=== PATIENT | female | born 1935 | race African-American/Black ===

== ENCOUNTER 2018-07-21 14:05 | Inpatient (IN) | payer OTHER ==
--- NOTE | 2018-07-21 14:24 | PDOC ---
History of Present Illness - General Chief Complaint: Altered Mental Status Stated Complaint: AMS Time Seen by Provider: 07/21/18 14:21 - History of Present Illness Initial Comments: 07/21/18 14:57 The patient is an 82 year old female with a history of HTN, HLD, Hypothyroid, Dementia, Schizophrenia who presents from her NH for evaluation of AMS. Per the patient's NH, she was on the toilet when she became unresponsive for approximately 3 minutes before returning to baseline. She was noted to be hypotensive with systolics in the 90s prompting her presentation to the ED for further evaluation. They note that the patient has been undergoing a steady decline over the past few weeks with poor PO intake. The patient is non- interactive at baseline due to her advance dementia. ROS is unobtainable due to the patient's dementia. Past History - Past Medical History Allergies/Adverse Reactions: Allergies Allergy/AdvReac Type Severity Reaction Status Date / Time No Known Allergies Allergy Verified 07/21/18 14:44 Home Medications: Ambulatory Orders Acetaminophen [Tylenol -] 650 mg PO BID 07/21/18 Amlodipine Besylate 5 mg PO DAILY 07/21/18 Aspirin [ASA -] 81 mg PO DAILY 07/21/18 Cholecalciferol (Vitamin D3) [Vitamin D3 -] 2,000 unit PO DAILY 07/21/18 Docusate Sodium [Colace -] 200 mg PO HS 07/21/18 Levothyroxine Sodium [Levo-T] 50 mcg PO DAILY 07/21/18 Mirtazapine [Remeron -] 15 mg PO HS 07/21/18 Multivitamins [Tab-A-Vit -] 1 tab PO DAILY 07/21/18 Polyethylene Glycol 3350 [Miralax (For Daily Use) -] 17 gm PO DAILY 07/21/18 Risperidone [Risperdal] 0.25 mg PO DAILY 07/21/18 Valsartan [Diovan] 80 mg PO DAILY 07/21/18 - Suicide/Smoking/Psychosocial Hx Smoking History: Unknown if ever smoked Review of Systems - Review of Systems Able to Perform ROS?: No (Dementia/AMS) *Physical Exam - Vital Signs Last Vital Signs Temp Pulse Resp BP Pulse Ox 113 H 20 86/66 L 98 07/21/18 14:19 07/21/18 14:19 07/21/18 14:19 07/21/18 14:19 - Physical Exam Comments: 07/21/18 15:01 General Appearance: Nourished. No Apparent Distress HEENT: EOMI, VELASQUEZ. No Pharyngeal Erythema, Tonsillar Exudate, Tonsillar Erythema Neck: No Cervical Lymphadenopathy Respiratory/Chest: Lungs Clear, Normal Breath Sounds. No Crackles, Rales, Rhonchi, Wheezing Cardiovascular: Regular Rhythm, Regular Rate. No Murmur, Gallops, Rubs Gastrointestinal/Abdominal: Normal Bowel Sounds, Soft. No Guarding, Rebound, Tenderness Musculoskeletal: No CVA Tenderness Extremity: Normal Capillary Refill Integumentary: Normal Color, Dry, Warm Neurologic: Alert, Moving all extremities equally. At mental baseline. ED Treatment Course - LABORATORY CBC & Chemistry Diagram: 07/21/18 16:21 07/21/18 15:08 Medical Decision Making - Medical Decision Making 07/21/18 15:01 The patient is an 82 year old female with a history of HTN, HLD, Hypothyroid, Dementia, Schizophrenia who presents from her [place] for evaluation of AMS. Differential includes but is not limited to: Sepsis, UTI, Intracranial process, Infectious, Metabolic Derangement. Given the patient's history and physical exam, we will obtain a cbc, cmp, lactate, troponin, ekg, ua, urine culture, chest plain film, blood cultures, head ct to evaluate further. The patient was noted to be febrile to 100.9 rectally here in the ED. We will treat with iv fluids, tylenol, vanc and zosyn here in the ED. She will require admission for further management. We will continue to monitor and reassess. 07/21/18 22:04 CBC demonstrates an elevated wbc to 13. CMP demonstrates elevated sodium to 159 and elevated liver enzymes. Lactate is elevated to 2.9. Head CT is negative as read by our radiologist. The patient's bp has improved after iv fluids. She will require admission for further management. We discussed the case with the admitting team who accepted the patient for admission. *DC/Admit/Observation/Transfer Diagnosis at time of Disposition: Sepsis Qualifiers: Sepsis type: sepsis due to unspecified organism Qualified Code(s): A41.9 - Sepsis, unspecified organism - Discharge Dispostion Condition at time of disposition: Stable Decision to Admit order: Yes - Referrals - Patient Instructions - Post Discharge Activity
[2018-07-21] MEDS ORDERED: SODIUM CHLORIDE 1,000 ML IV STA (14:34)
[2018-07-21] MEDS ORDERED: PIPERACILLIN/TAZOB 4.5 GM 4.5 GM in DEXTROSE 5%-WATER 100 ML IVPB ONE (14:39)
[2018-07-21] MEDS ORDERED: VANCOMYCIN 1 GRAM (PRE-DOCKED) 1,000 MG/250 ML BAG IVPB ONE ×2 (14:39→18:08)
[2018-07-21] MEDS ORDERED: ACETAMINOPHEN 1000 MG/100 ML VIAL (NON FORMULARY) IVPB ONE (14:39)
[2018-07-21] MEDS ORDERED: ACETAMINOPHEN INJECTION 100 ML IVPB ONE (15:13)
[2018-07-21 15:21] LABS: VENOUS PC02 29.6 mmHg (41-51); VENOUS PH 7.52 (7.31-7.41)
--- NOTE | 2018-07-21 15:42 | PDOC ---
Documentation entered by Sarah Peraza SCRIBE, acting as scribe for Francis Dickerson MD. Francis Dickerson MD: This documentation has been prepared by the Karmen ndiaye Amanda, SCRIBE, under my direction and personally reviewed by me in its entirety. I confirm that the documentation accurately reflects all work, treatment, procedures, and medical decision making performed by me. Attending Attestation - Resident Resident Name: Jose Alejandro Nguyễn - ED Attending Attestation I have performed the following: I have examined & evaluated the patient, The case was reviewed & discussed with the resident, I agree w/resident's findings & plan, Exceptions are as noted - HPI HPI: 07/21/18 15:30 The patient is an 82 year old female with a significant past medical history of HTN, HLD, Hypothyroid, Dementia, Schizophrenia who presents to the ED from her NH for evaluation of altered mental states and syncopal episode as per residential staff today. The patient was reportedly seated on the toilet when she became unresponsive for approximately 3 minutes before returning to baseline. Staff was present with patient at time of episode. Pt did not fall or have headstrike. The NH staff states the patient has had decreased PO intake over the past couple of weeks, but no fevers have been noted. Pt unable to provide Hx secondary to dementia. - Physicial Exam PE: 07/21/18 15:31 GENERAL: (+) noninteractive at baseline due to dementia. Awake. in no acute distress. HEAD: No signs of trauma EYES: PERRLA, EOMI, sclera anicteric, conjunctiva clear ENT: Auricles normal inspection, hearing grossly normal, nares patent, oropharynx clear without exudates. Moist mucosa NECK: Nontender, no stepoffs, Normal ROM, supple, no lymphadenopathy, JVD, or masses LUNGS: Breath sounds equal, clear to auscultation bilaterally. No wheezes, and no crackles HEART: Regular rate and rhythm, normal S1 and S2, no murmurs, rubs or gallops ABDOMEN: Soft, nontender, normoactive bowel sounds. No guarding, no rebound. No masses EXTREMITIES: Normal range of motion, no edema. No clubbing or cyanosis. No cords, erythema, or tenderness NEUROLOGICAL: Cranial nerves II through XII intact. 5/5 strength and sensation in all extremities, SKIN: Warm, Dry, normal turgor, no rashes or lesions noted." - Medical Decision Making 07/21/18 15:41 82 F with AMS and syncopal episode at [place]. Found to be febrile and hypotensive in ED. Suspect sepsis. - Labs, cultures - CXR, UA - IVF, vanc/zosyn, tylenol
[2018-07-21 16:17] LABS: ALBUMIN 2.2 g/dl (3.4-5.0); ALK PHOS 884 U/L (45-117); ANION GAP 4 MMOL/L (8-16); BILIRUBIN,TOTAL 0.6 mg/dL (0.2-1); BLOOD UREA NITROGEN 62 mg/dL (7-18); CALCIUM 11.1 mg/dL (8.5-10.1); CHLORIDE 126 mmol/L (98-107); CO2 29 mmol/L (21-32); CREATININE 1.9 mg/dL (0.55-1.3); GLUCOSE,RANDOM 221 mg/dL (74-106); SGOT/AST 199 U/L (15-37); SGPT/ALT 111 U/L (13-61); SODIUM 159 mmol/L (136-145); TOT PROT 7.1 g/dl (6.4-8.2)
[2018-07-21] MEDS ORDERED: PIPERACILLIN/TAZOB 4.5 GM 4.5 GM/100 ML BAG IVPB ONE (16:31)
[2018-07-21 16:44] LABS: BASO % 0.3 % (0-2.0); HEMATOCRIT 39.7 % (32.4-45.2); HEMOGLOBIN 12.3 GM/dL (10.7-15.3); LYMPH % 11.2 % (8-40); MCH 27.9 pg (25.7-33.7); MEAN PLT VOLUME 11.9 fl (7.5-11.1); MONO % 5.6 % (3.8-10.2); NEUT % 82.9 % (42.8-82.8); PLATELET COUNT 176 K/MM3 (134-434); RBC 4.41 M/mm3 (3.60-5.2); RDW 15.8 % (11.6-15.6)
[2018-07-21 16:57] LABS: INR 1.37 (0.83-1.09); PROTHROMBIN TIME (PATIENT) 16.2 SEC (9.7-13.0)
[2018-07-21 17:00] LABS: ACTIVATED PTT 31.9 SECONDS (25.2-36.5)
[2018-07-21 19:17] LABS: EPI CELLS 4.8 /HPF (0-5/HPF); URINE APPEARANCE CLOUDY; URINE BACTERIA 108.9 /hpf (NEGATIVE); URINE BILIRUBIN NEGATIVE (NEGATIVE); URINE CASTS 25 /lpf (0-8); URINE COLOR DK YELLOW; URINE GLUCOSE (UA) NEGATIVE (NEGATIVE); URINE KETONE NEGATIVE (NEGATIVE); URINE LEUK ESTERASE 2+ (NEGATIVE); URINE NITRITE NEGATIVE (NEGATIVE); URINE PROTEIN 1+ (NEGATIVE); URINE RBC 8 /hpf (0-4); URINE WBC 57 /hpf (0-5)
--- NOTE | 2018-07-21 20:15 | PN ---
Teaching Attending Note Name of Resident: Jose Alejandro Lopez ATTENDING PHYSICIAN STATEMENT I saw and evaluated the patient. I reviewed the resident's note and discussed the case with the resident. I agree with the resident's findings and plan as documented. SUBJECTIVE: Patient is an 82 year old woman with a PMH of HTN, HLD, Hypothyroid, Dementia, Schizophrenia who presents to the ER from her [place] for evaluation of altered mental status and syncopal episode as per [place] staff. The patient was reportedly seated on the toilet when she became unresponsive for approximately 3 minutes before returning to baseline. Staff was present with patient at time of episode. Patient did not fall or have head strike. The NH staff say the patient has had decreased PO intake over the past couple of weeks, but no fevers have been noted. Patient unable to provide additional information due to dementia. OBJECTIVE: Lethargic Vital Signs Period Temp Pulse Resp BP Sys/Shankar Pulse Ox Last 24 Hr 97.2 F-99.6 F 102-113 20-22 86-134/63-74 98 HEENT: No Jaundice, eye redness or discharge, PERRLA, EOMI. Normocephalic, atraumatic. External ears are normal and hearing is grossly intact. No nasal discharge. Neck: Supple, nontender. No palpable adenopathy or thyromegaly. No JVD Chest: Good effort. Clear to auscultation and percussion. Heart: Tachycardia. No S3, rub or murmur Abdomen: Not distended, soft, nontender and no HSM. No rebound or guarding. Normal bowel sounds. Ext: Peripheral pulses intact. No leg edema. Skin: Warm and dry. No petechiae, rash or ecchymosis. Neuro: Lethargic. Noninteractive and unable to follow commands. CN 2-12 grossly intact. Sensation grossly intact in all four extremities and DTR are symmetric. Psych: Appropriate mood and affect. Home Medications Medication Instructions Recorded Acetaminophen [Tylenol -] 325 mg PO BID 07/21/18 Amlodipine Besylate 5 mg PO DAILY 07/21/18 Aspirin [ASA -] 81 mg PO DAILY 07/21/18 Cholecalciferol (Vitamin D3) 2,000 unit PO DAILY 07/21/18 [Vitamin D3 -] Docusate Sodium [Colace -] 200 mg PO HS 07/21/18 Levothyroxine Sodium [Levo-T] 50 mcg PO DAILY 07/21/18 Mirtazapine [Remeron -] 15 mg PO DAILY 07/21/18 Multivitamins [Tab-A-Vit -] 1 tab PO DAILY 07/21/18 Polyethylene Glycol 3350 [Miralax 17 gm PO DAILY 07/21/18 (For Daily Use) -] Risperidone [Risperdal] 0.25 mg PO DAILY 07/21/18 Valsartan [Diovan] 80 mg PO DAILY 07/21/18 Abnormal Lab Results 07/21/18 07/21/18 07/21/18 15:08 15:08 15:08 WBC MCHC RDW MPV Absolute Neuts (auto) Neutrophils % Nucleated RBC % PT with INR INR VBG pH 7.52 H POC VBG pCO2 29.6 L POC VBG pO2 110 H VBG O2 Sat (Najma) 98.1 H VBG Base Excess 2.3 H Sodium 159 H Chloride 126 H Anion Gap 4 L BUN 62 H Creatinine 1.9 H Random Glucose 221 H Lactic Acid 2.9 H* Calcium 11.1 H AST 199 H ALT 111 H Alkaline Phosphatase 884 H Creatine Kinase 365 H Albumin 2.2 L Urine Protein Urine Blood Ur Leukocyte Esterase 07/21/18 07/21/18 07/21/18 16:21 16:21 18:38 WBC 13.0 H MCHC 31.0 L RDW 15.8 H MPV 11.9 H Absolute Neuts (auto) 10.8 H Neutrophils % 82.9 H Nucleated RBC % 1 H PT with INR 16.20 H INR 1.37 H VBG pH POC VBG pCO2 POC VBG pO2 VBG O2 Sat (Najma) VBG Base Excess Sodium Chloride Anion Gap BUN Creatinine Random Glucose Lactic Acid Calcium AST ALT Alkaline Phosphatase Creatine Kinase Albumin Urine Protein 1+ H Urine Blood 1+ H Ur Leukocyte Esterase 2+ H Current Medications Generic Name Dose Route Start Last Admin Trade Name Freq PRN Reason Stop Dose Admin Heparin Sodium (Porcine) 5,000 unit 07/22/18 06:00 Heparin - SQ TID DANTE Sodium Chloride 1,000 mls @ 100 mls/hr 07/21/18 21:00 1/2 Normal Saline IV ASDIR DANTE Piperacillin Sod/Tazobactam 50 mls @ 100 mls/hr 07/21/18 21:00 Sod 2.25 gm/ Dextrose IVPB Q6H-IV DANTE Protocol Piperacillin Sod/Tazobactam 50 mls @ 100 mls/hr 07/22/18 03:00 Sod 2.25 gm/ Dextrose IVPB 07/22/18 21:29 Q6H-IV DANTE Protocol ASSESSMENT AND PLAN: 1. Sepsis due to healthcare-associated UTI/Toxic Metabolic Encephalopathy - No acute abnormality on CXR and Head CT. AMS likely toxic metabolic encephalopathy due to sepsis. BP improved with IV NS in the ER. Will treat with IV Zosyn, switch to IV 0.45% NS in view of hypernatremia; check serum sodium q 6 hours to avoid a rapid drop. If hypernatremia persists, will switch to a more hypotonic fluid. Though elevated LFTs may be due to sepsis, will get CT abdomen/pelvis to investigate elevated LFTs and azotemia. Trend LFTs and lactic acid. Get hepatitis serology. Will keep her NPO and get swallow evaluation in view of altered mentation. Mild elevation in troponin likely due to demand ischemia/ sepsis and KATIE. EKG shows sinus tachycardia with no significant ST-T wave changes. Will rule out ACS. 2. Hypoalbuminemia - Possibly due to combined effects of proteinuria, malnutrition and inflammation associated with comorbid chronic conditions. Will ensure adequate dietary protein intake and also consult dish technician. 3. KATIE - Etiology unclear. Will monitor urine output, pass pickett and assess kidneys with CT. Will consult nephrology and avoid nephrotoxic agents such as NSAIDS, aminoglycosides, contrast dyes and certain Alternative medicine products. 4. Obesity Counseled on the risks associated with obesity. Will provide patient all the necessary assistance, counseling and positive reinforcement to facilitate weight loss. Consult dish technician. 5. Hypertension - Will restart outpatient antihypertensive drugs when clinically appropriate. Nonpharmacologic measures to control hypertension like weight loss, salt restriction and exercise discussed. 6. DVT prophylaxis - Heparin 5000u sq tid. 7. Advance directives - Full code
[2018-07-21 22:22] LABS: ANION GAP 7 MMOL/L (8-16); BLOOD UREA NITROGEN 60 mg/dL (7-18); CALCIUM 10.3 mg/dL (8.5-10.1); CHLORIDE 126 mmol/L (98-107); CO2 28 mmol/L (21-32); CREATININE 1.7 mg/dL (0.55-1.3); GLUCOSE,RANDOM 231 mg/dL (74-106); POTASSIUM 3.3 mmol/L (3.5-5.1); SODIUM 160 mmol/L (136-145)
--- NOTE | 2018-07-21 23:19 | HP ---
CHIEF COMPLAINT: AMS, hypotension PCP: Dr. Garces HISTORY OF PRESENT ILLNESS: Patient is an 82 y/o F from [facility] w/ PMHx HTN, HLD, hypothyroidism, dementia , schizophrenia, BIBEMS after being found less responsive than at baseline while on the toilet for approximately 3 minutes. Patient has advanced dementia and is unable to provide any history, unclear if at mental baseline at time of encounter. Family at bedside state that Pt has had several months progressive decline from a more alert, interactive, and verbal state; express concern that replacement of risperidone with Remeron ~1 m/a coincided with mental status deterioration; they also state current condition is worse than baseline several days ago. Reportedly febrile to 100.9 on presentation (not in system), tachycardic to 113, BP 89/74 improving to 134/63 after 1L NS, RR 22. Head CT negative. WBC 13, Na 159, Cr 1.9 (KATIE given Cr 1.0 ~2 w/a), troponin 0.04, lactic acid 2.9-->1.9, LFTs grossly deranged AST 199 ALT 111 Alk Phos 884 (was 72/70/356 ~2 w/a), UA with 57 WBC, 8 RBC, 2+ LE, 108 bacteria. Given 1L NS, Ofirmev, Vancomycin and Zosyn in ED. HCP: Pt's son Ben Copeland [phone] Recent Travel: PAST MEDICAL HISTORY: As per HPI PAST SURGICAL HISTORY: unable to be obtained Social History: Smoking: Alcohol: Drugs: Family History: Allergies No Known Allergies Allergy (Verified 07/21/18 14:44) HOME MEDICATIONS: Home Medications Medication Instructions Recorded Acetaminophen [Tylenol -] 650 mg PO BID 07/21/18 Amlodipine Besylate 5 mg PO DAILY 07/21/18 Aspirin [ASA -] 81 mg PO DAILY 07/21/18 Cholecalciferol (Vitamin D3) 2,000 unit PO DAILY 07/21/18 [Vitamin D3 -] Docusate Sodium [Colace -] 200 mg PO HS 07/21/18 Levothyroxine Sodium [Levo-T] 50 mcg PO DAILY 07/21/18 Mirtazapine [Remeron -] 15 mg PO HS 07/21/18 Multivitamins [Tab-A-Vit -] 1 tab PO DAILY 07/21/18 Polyethylene Glycol 3350 [Miralax 17 gm PO DAILY 07/21/18 (For Daily Use) -] Risperidone [Risperdal] 0.25 mg PO DAILY 07/21/18 Valsartan [Diovan] 80 mg PO DAILY 07/21/18 REVIEW OF SYSTEMS unable to obtain PHYSICAL EXAMINATION Vital Signs - 24 hr 07/21/18 07/21/18 07/21/18 14:15 14:19 16:20 Temperature 99.6 F Pulse Rate 113 H Pulse Rate [ 109 H Apical] Respiratory 20 Rate Blood Pressure 86/66 L Blood Pressure 89/74 L [Left Arm] O2 Sat by Pulse 98 Oximetry (%) 07/21/18 16:47 Temperature 97.2 F L Pulse Rate Pulse Rate [ 102 H Apical] Respiratory 22 H Rate Blood Pressure Blood Pressure 134/63 [Left Arm] O2 Sat by Pulse Oximetry (%) GENERAL: Obtunded, eyes open, breathing coarsely through open mouth HEENT: NC/AT, sluggish pupils NECK: Trachea midline, supple LUNGS: diffusely coarse, irregular breathing HEART: tachycardic no m/r/g ABDOMEN: soft, NT, ND EXTREMITIES: 2+ pulses, warm, well-perfused, no edema. NEUROLOGICAL: could not obtain PSYCH: could not obtain SKIN: Warm, dry, normal turgor, no rashes or lesions noted Laboratory Results - last 24 hr 07/21/18 07/21/18 07/21/18 15:08 15:08 15:08 WBC Cancelled Corrected WBC (auto) Cancelled RBC Cancelled Hgb Cancelled Hct Cancelled MCV Cancelled MCH Cancelled MCHC Cancelled RDW Cancelled Plt Count Cancelled MPV Cancelled Absolute Neuts (auto) Cancelled Neutrophils % Cancelled Lymphocytes % Cancelled Monocytes % Cancelled Eosinophils % Cancelled Basophils % Cancelled Nucleated RBC % Cancelled Platelet Estimate Cancelled Platelet Comment Cancelled PT with INR Cancelled INR Cancelled PTT (Actin FS) Cancelled VBG pH 7.52 H POC VBG pCO2 29.6 L POC VBG pO2 110 H VBG HCO3 24.1 VBG O2 Sat (Najma) 98.1 H VBG Base Excess 2.3 H Sodium Potassium Chloride Carbon Dioxide Anion Gap BUN Creatinine Creat Clearance w eGFR Random Glucose Lactic Acid Calcium Total Bilirubin AST ALT Alkaline Phosphatase Creatine Kinase Creatine Kinase Index CK-MB (CK-2) Troponin I Total Protein Albumin Urine Color Urine Appearance Urine pH Ur Specific [place] Urine Protein Urine Glucose (UA) Urine Ketones Urine Blood Urine Nitrite Urine Bilirubin Urine Urobilinogen Ur Leukocyte Esterase Urine WBC (Auto) Urine RBC (Auto) Urine Casts (Auto) U Pathogenic Cast Auto U Epithel Cells (Auto) Urine Bacteria (Auto) 07/21/18 07/21/18 07/21/18 15:08 15:08 16:21 WBC 13.0 H Corrected WBC (auto) RBC 4.41 Hgb 12.3 Hct 39.7 MCV 90.0 MCH 27.9 MCHC 31.0 L RDW 15.8 H Plt Count 176 MPV 11.9 H Absolute Neuts (auto) 10.8 H Neutrophils % 82.9 H Lymphocytes % 11.2 Monocytes % 5.6 Eosinophils % 0.0 Basophils % 0.3 Nucleated RBC % 1 H Platelet Estimate Platelet Comment PT with INR INR PTT (Actin FS) VBG pH POC VBG pCO2 POC VBG pO2 VBG HCO3 VBG O2 Sat (Najma) VBG Base Excess Sodium 159 H Potassium 4.0 Chloride 126 H Carbon Dioxide 29 Anion Gap 4 L BUN 62 H Creatinine 1.9 H Creat Clearance w eGFR 25.18 Random Glucose 221 H Lactic Acid 2.9 H* Calcium 11.1 H Total Bilirubin 0.6 AST 199 H ALT 111 H Alkaline Phosphatase 884 H Creatine Kinase 365 H Creatine Kinase Index 0.2 CK-MB (CK-2) < 1.0 Troponin I 0.04 Total Protein 7.1 Albumin 2.2 L Urine Color Urine Appearance Urine pH Ur Specific [place] Urine Protein Urine Glucose (UA) Urine Ketones Urine Blood Urine Nitrite Urine Bilirubin Urine Urobilinogen Ur Leukocyte Esterase Urine WBC (Auto) Urine RBC (Auto) Urine Casts (Auto) U Pathogenic Cast Auto U Epithel Cells (Auto) Urine Bacteria (Auto) 07/21/18 07/21/18 07/21/18 16:21 18:38 20:35 WBC Corrected WBC (auto) RBC Hgb Hct MCV MCH MCHC RDW Plt Count MPV Absolute Neuts (auto) Neutrophils % Lymphocytes % Monocytes % Eosinophils % Basophils % Nucleated RBC % Platelet Estimate Platelet Comment PT with INR 16.20 H INR 1.37 H PTT (Actin FS) 31.9 VBG pH POC VBG pCO2 POC VBG pO2 VBG HCO3 VBG O2 Sat (Najma) VBG Base Excess Sodium Potassium Chloride Carbon Dioxide Anion Gap BUN Creatinine Creat Clearance w eGFR Random Glucose Lactic Acid 1.9 Calcium Total Bilirubin AST ALT Alkaline Phosphatase Creatine Kinase Creatine Kinase Index CK-MB (CK-2) Troponin I Total Protein Albumin Urine Color Dk yellow Urine Appearance Cloudy Urine pH 5.0 Ur Specific [place] 1.027 Urine Protein 1+ H Urine Glucose (UA) Negative Urine Ketones Negative Urine Blood 1+ H Urine Nitrite Negative Urine Bilirubin Negative Urine Urobilinogen 1.0 Ur Leukocyte Esterase 2+ H Urine WBC (Auto) 57 Urine RBC (Auto) 8 Urine Casts (Auto) 25 U Pathogenic Cast Auto Negative U Epithel Cells (Auto) 4.8 Urine Bacteria (Auto) 108.9 07/21/18 21:28 WBC Corrected WBC (auto) RBC Hgb Hct MCV MCH MCHC RDW Plt Count MPV Absolute Neuts (auto) Neutrophils % Lymphocytes % Monocytes % Eosinophils % Basophils % Nucleated RBC % Platelet Estimate Platelet Comment PT with INR INR PTT (Actin FS) VBG pH POC VBG pCO2 POC VBG pO2 VBG HCO3 VBG O2 Sat (Najma) VBG Base Excess Sodium 160 H Potassium 3.3 L Chloride 126 H Carbon Dioxide 28 Anion Gap 7 L BUN 60 H Creatinine 1.7 H Creat Clearance w eGFR 28.63 Random Glucose 231 H Lactic Acid Calcium 10.3 H Total Bilirubin AST ALT Alkaline Phosphatase Creatine Kinase Creatine Kinase Index CK-MB (CK-2) Troponin I 0.05 Total Protein Albumin Urine Color Urine Appearance Urine pH Ur Specific [place] Urine Protein Urine Glucose (UA) Urine Ketones Urine Blood Urine Nitrite Urine Bilirubin Urine Urobilinogen Ur Leukocyte Esterase Urine WBC (Auto) Urine RBC (Auto) Urine Casts (Auto) U Pathogenic Cast Auto U Epithel Cells (Auto) Urine Bacteria (Auto) ASSESSMENT/PLAN: 82 y/o F from [facility] w/ PMHx HTN, HLD, hypothyroidism, dementia, schizophrenia, BIBEMS after being found less responsive than at baseline while on the toilet for approximately 3 minutes #A: -acute toxic metabolic encephalopathy 2/2 sepsis 2/2 UTI -hypotension corrected w/ NS bolus -transaminitis -KATIE -hypernatremia -cultures pending -equivocal initial troponin #P: -cont renally-dosed Zosyn for pseudomonal coverage for NH patient -ID consulted (Dr. Dumont) -dry CT a/p for assessment of liver and kidneys -hepatitis serology -1/2 NS @ 100cc/hr -monitor BMP q6h to assess hypernatremia -speech/swallow consult -hold PO home meds for aspiration risk -aspiration precautions -monitor BMP, Mg, Phos -NPO pending S/S evaluation -heparin subq for DVT PPx -full code -admit to med/surg Visit type - Emergency Visit Emergency Visit: Yes ED Registration Date: 07/21/18 Care time: The patient presented to the Emergency Department on the above date and was hospitalized for further evaluation of their emergent condition. - New Patient This patient is new to me today: Yes Date on this admission: 07/21/18 - Critical Care Critical Care patient: No
[2018-07-22] MEDS: SODIUM CHLORIDE 0.45% 1,000 ML IV SCH ×2 (00:27→02:54)
[2018-07-22] MEDS: KCL 10 MEQ IVPB 10 MEQ/100 ML INFUS.BAG IVPB SCH ×3 (02:23→04:32)
[2018-07-22] MEDS ORDERED: DEXTROSE 5%-WATER - 50 ML IVPB ONE ×4 (02:46→21:12)
[2018-07-22] MEDS ORDERED: PIPERACILLIN/TAZOBACTAM 2.25 GM VIAL IVPB ONE ×4 (02:46→21:12)
[2018-07-22] MEDS: PIPERACILLIN/TAZOB 2.25 GM 2.25 GM in DEXTROSE 5%-WATER - 50 ML IVPB SCH ×4 (02:55→21:22)
[2018-07-22] MEDS: HEPARIN NA (PORCINE) 5,000 UNITS/ML 1ML VIAL SQ SCH ×3 (05:25→21:22)
[2018-07-22 07:30] LABS: BASO % 0.3 % (0-2.0); EOS % 0.4 % (0-4.5); HEMATOCRIT 37.4 % (32.4-45.2); HEMOGLOBIN 11.5 GM/dL (10.7-15.3); MCH 27.6 pg (25.7-33.7); MCHC 30.8 g/dl (32.0-36.0); MEAN CELL VOLUME 89.4 fl (80-96); MEAN PLT VOLUME 11.5 fl (7.5-11.1); MONO % 5.2 % (3.8-10.2); NEUT % 82.1 % (42.8-82.8); PLATELET COUNT 142 K/MM3 (134-434); RBC 4.19 M/mm3 (3.60-5.2); RDW 15.6 % (11.6-15.6); WHITE BLOOD COUNT 14.7 K/mm3 (4.0-10.0)
[2018-07-22 07:50] LABS: ANION GAP 5 MMOL/L (8-16); BLOOD UREA NITROGEN 47 mg/dL (7-18); CALCIUM 10.5 mg/dL (8.5-10.1); CHLORIDE 125 mmol/L (98-107); CO2 28 mmol/L (21-32); CREATININE 1.4 mg/dL (0.55-1.3); GLUCOSE,RANDOM 159 mg/dL (74-106); MAGNESIUM 2.8 mg/dL (1.8-2.4); PHOSPHOROUS 2.9 mg/dL (2.5-4.9); POTASSIUM 3.6 mmol/L (3.5-5.1); SODIUM 159 mmol/L (136-145)
--- NOTE | 2018-07-22 10:01 | CONSULT ---
Admitting History and Physical - Primary Care Physician PCP: Douglas Gordon - Admission History of Present Illness: 82 y/o F from [facility] w/ PMHx HTN, HLD, hypothyroidism, dementia, schizophrenia, BIBEMS after being found less responsive than at baseline while on the toilet for approximately 3 minutes with dx of Acute toxic metabolic encephalopathy 2/2 sepsis 2/2 UTI Pt with dx of Oral Dysphagia at [facility], with diet order of Ground diet/thin liquid This is my first consult with this pt. History Source: Medical Record Limitations to Obtaining History: Clinical Condition, Dementia - Smoking History Smoking history: Unknown if ever smoked - Alcohol/Substance Use Hx Alcohol Use: No History - Admission Reason For Visit: SEPSIS - Diagnostics X-ray: Report Reviewed CT Scan: Report Reviewed - General Mental Status: Confused (disoriented x 3), Flat Affect Attention: Moderate Impairment Ability to Follow Directions: Fair Head/Neck Control: Fair - Hearing Hearing: Functional Hearing Aide: No With Patient: No Speech Evaluation - Communication Primary Language: FIJIAN Communication: Yes: Simple Responses (rare.Impaired speech initiation. Highly distractible.) - Speech Production Intelligibility: Yes: Mildly Impaired - Speech Characteristics Voice Loudness: Normal Voice Pitch: Yes: Normal Voice Phonatory-based Quality: Yes: Normal Speech Pattern: Impaired (limited speech initiation and response.Baseline? suspect sec to Demerntia, exacerbated by Metabolic Encephalopathy) Nasal Resonance: Normal Articulation: Yes: Precise - Language/Auditory Comprehension Observation: Able to respond to yes/no queries: Yes (delayed, occasional resonse.) - Language/Verbal Expression Able to Respond to Simple Queries: Yes: Severely Impaired - Swallow Evaluation/Bedside Assessment Current Nutritional Intake: NPO Oral Secretions: Yes: WFL Dentition: Yes: Edentulous (lower), Missing Teeth (a few anterior upper teeth) Facial Symmetry at Rest: Symmetrical Jaw Position: Open at Rest Lingual Movement: Symmetric Lingual Movement Strgth Against Opposition: Normal Velopharyngeal Movement: Normal Laryngeal Movement: Reduced Excursion, Labored,delay initiation, Reduced Velocity Rate of Intake: Slow/Holding Bolus Size: Small Labial Seal: WFL Oral Prep Time: Increased A-P Transit: Impaired (suspect spillage over base of tongue into airway with thin liquid before swallow reflex is initiated.) Timing of Swallow: Delayed Coughing/Throat Clear: Yes (thin liquid) Change in Voice: Yes Recommendations - Speech Evaluation, Impression/Plan Impression: Limited speech initiation and response.Highly distractible. Cough response with thin liquids. Delayed swallow onset. Baseline? suspect sec to Dementia, exacerbated by Metabolic Encephalopathy - Disposition Discharge to: [facility] Facility - Dysphagia Impressions/Plan Swallowing Skills: Impaired Dysphagia Impressions: Moderate Impairment, Suspect Aspiration (Suspect spillage over base of tongue into airway with thin liquid before swallow reflex is initiated.) *Silent aspiration: cannot be R/O at bedside Recommendations: Modified Barium Swallow (if cough response, congestion), Other (Defer PO trials until more responsive. Presently, poor ability to maintain eye contact, attend to task with high distractibility. TELL PT TO SWALLOW WITH EACH TSP AND OBSERVE FOR PHARYNGEAL SWALLOW BEFORE NEXT PRESENTATION.) - Recommendations Diet Consistency: Dysphagia Pureed Medication Administration: Crushed with applesauce Liquids: [place] Thick (on tsp only.) Supplement: Magic Cup
[2018-07-22 11:10] LABS: ANISOCYTOSIS 1+; MACROCYTOSIS 0; PLATELET ESTIMATE NORMAL
--- NOTE | 2018-07-22 11:17 | CON.ID ---
Consult Consult Specialty:: infectious disease Referred by:: hospitalist service Reason for Consultation:: possible sepsis - History of Present Illness Chief Complaint: unresponsive episode at [place] History of Present Illness: 82 yo female NHR with a 3 minute episode of unresponsiveness while sitting on toilet she was carried to and then became responsive, noted to have low bp on transfer to bed 90/66 improved to 112/62 she has been declining for weeks MD at [place] recently met with son to discuss advanced directived no decision was reached she is wheelchair bound and "mostly " nonverba [place]fts done [place]06 [place] ast 72, alt 70, alk phos 356 she was noted to have wbc of 13k and elevated lactic acid 2.9 and was started on zosyn after cultures were sent als noted to have abnl lfts and hypercalcemia, +UA for LE and wbc tm 99.6 she opens her eyes, verbal denies pain - History Source History Provided By: Medical Record Limitations to Obtaining History: Dementia - Past Medical History ANESTHESIOLOGY FACULTY: Yes: Dementia Cardio/Vascular: Yes: HTN, Hyperlipdemia Psych: Yes: Schizophrenia Endocrine: Yes: Hypothyroidism - Alcohol/Substance Use Hx Alcohol Use: No - Smoking History Smoking history: Unknown if ever smoked - Social History Usual Living Arrangement: Long Term ADL: Support Services History of Recent Travel: No Home Medications - Allergies Allergies/Adverse Reactions: Allergies Allergy/AdvReac Type Severity Reaction Status Date / Time No Known Allergies Allergy Verified 07/21/18 14:44 - Home Medications Home Medications: Ambulatory Orders Acetaminophen [Tylenol -] 650 mg PO BID 07/21/18 Amlodipine Besylate 5 mg PO DAILY 07/21/18 Aspirin [ASA -] 81 mg PO DAILY 07/21/18 Cholecalciferol (Vitamin D3) [Vitamin D3 -] 2,000 unit PO DAILY 07/21/18 Docusate Sodium [Colace -] 200 mg PO HS 07/21/18 Levothyroxine Sodium [Levo-T] 50 mcg PO DAILY 07/21/18 Mirtazapine [Remeron -] 15 mg PO HS 07/21/18 Multivitamins [Tab-A-Vit -] 1 tab PO DAILY 07/21/18 Polyethylene Glycol 3350 [Miralax (For Daily Use) -] 17 gm PO DAILY 07/21/18 Risperidone [Risperdal] 0.25 mg PO DAILY 07/21/18 Valsartan [Diovan] 80 mg PO DAILY 07/21/18 Family Disease History - Family Disease History Family History: Unable to Obtain Review of Systems - Review of Systems Constitutional: reports: No Symptoms, Lethargy. denies: Diaphoresis, Fever HENT: reports: Other (decreased po intake) Cardiovascular: denies: Chest Pain Gastrointestinal: denies: Abdominal Pain Physical Exam Vital Signs: Vital Signs Temperature 98.1 F 07/22/18 06:00 Pulse Rate 93 H 07/22/18 06:00 Respiratory Rate 20 07/22/18 06:00 Blood Pressure 115/50 L 07/22/18 06:00 O2 Sat by Pulse Oximetry (%) 96 07/22/18 04:41 Constitutional: Yes: No Distress, Thin HENT: Yes: Atraumatic, Normocephalic. No: Pharyngeal Erythema, Thrush Cardiovascular: Yes: Regular Rate and Rhythm Respiratory: Yes: CTA Bilaterally Gastrointestinal: Yes: Normal Bowel Sounds, Soft. No: Tenderness ...Rectal Exam: Yes: Deferred Breast(s): No: Mass Musculoskeletal: Yes: Other (stiff all over) Extremities: Yes: WNL Labs: CBC, BMP 07/22/18 06:30 07/22/18 06:30 cultures pending Laboratory Tests 07/21/18 07/21/18 07/22/18 15:08 21:28 06:30 Calcium 11.1 H 10.3 H 10.5 H AST 199 H ALT 111 H Alkaline Phosphatase 884 H Creatine Kinase 365 H Albumin 2.2 L UA 2+LE, 57 WBCs Imaging - Results Chest X-ray: Report Reviewed, Image Reviewed (no infiltrate) Cat Scan: Report Reviewed Problem List - Problems (1) Sepsis Code(s): A41.9 - SEPSIS, UNSPECIFIED ORGANISM Qualifiers: Sepsis type: sepsis due to unspecified organism Qualified Code(s): A41.9 - Sepsis, unspecified organism (2) Abnormal LFTs Code(s): R94.5 - ABNORMAL RESULTS OF LIVER FUNCTION STUDIES (3) Hypercalcemia Code(s): E83.52 - HYPERCALCEMIA (4) UTI (urinary tract infection) Code(s): N39.0 - URINARY TRACT INFECTION, SITE NOT SPECIFIED Assessment/Plan zosyn for now pending abd/pelvic ct scan renal consult renal sono ?liver sono address hypercalcemia- ?malignancy, ?PTH hydrate f/u cultures hopefully deescalate in 24-48h d/w hospitalist service
--- NOTE | 2018-07-22 11:26 | EKG ---
Test Reason : Blood Pressure : / mmHG Vent. Rate : 105 BPM Atrial Rate : 105 BPM P-R Int : 124 ms QRS Dur : 086 ms QT Int : 336 ms P-R-T Axes : 055 -44 126 degrees QTc Int : 444 ms POOR DATA QUALITY, INTERPRETATION MAY BE ADVERSELY AFFECTED SINUS TACHYCARDIA LEFT AXIS DEVIATION LEFT VENTRICULAR HYPERTROPHY WITH REPOLARIZATION ABNORMALITY ABNORMAL ECG NO PREVIOUS ECGS AVAILABLE Confirmed by TRISHA SALMERON MD ([id number]) on 07/22/2018 11:26:01 AM Referred By: Confirmed By:TRISHA SALMERON MD
[2018-07-22 11:38] LABS: ALBUMIN 2.1 g/dl (3.4-5.0); ALK PHOS 901 U/L (45-117); BILIRUBIN,DIRECT 0.4 mg/dL (0.0-0.2); BILIRUBIN,TOTAL 0.7 mg/dL (0.2-1); SGOT/AST 187 U/L (15-37); SGPT/ALT 90 U/L (13-61); TOT PROT 6.6 g/dl (6.4-8.2)
--- NOTE | 2018-07-22 13:10 | PN ---
Physical Exam: SUBJECTIVE: Patient seen and examined. No acute events overnight. OBJECTIVE: Vital Signs Period Temp Pulse Resp BP Sys/Shankar Pulse Ox Last 24 Hr 97.2 F-99.6 F 84-113 17-22 86-146/50-87 96-98 GENERAL: The patient is awake, alert, and fully oriented, in no acute distress. HEAD: Normal with no signs of trauma. EYES: PERRL, sclera anicteric, conjunctiva clear. No ptosis. ENT: Ears normal, nares patent, oropharynx clear without exudates, moist mucous membranes. NECK: Trachea midline, full range of motion, supple. LUNGS: Breath sounds equal, clear to auscultation bilaterally, no wheezes, no crackles, no accessory muscle use. HEART: Regular rate and rhythm, S1, S2 without murmur ABDOMEN: Soft, nontender, nondistended, normoactive bowel sounds, no guarding, no rebound EXTREMITIES: 2+ radial pulses, warm, well-perfused, no edema. NEUROLOGICAL: Gait not observed. PSYCH: Normal mood, normal affect. SKIN: Warm, dry, normal turgor, no rashes or lesions noted Laboratory Results - last 24 hr 07/21/18 07/21/18 07/21/18 15:08 15:08 15:08 WBC Cancelled Corrected WBC (auto) Cancelled RBC Cancelled Hgb Cancelled Hct Cancelled MCV Cancelled MCH Cancelled MCHC Cancelled RDW Cancelled Plt Count Cancelled MPV Cancelled Absolute Neuts (auto) Cancelled Neutrophils % Cancelled Neutrophils % (Manual) Band Neutrophils % Lymphocytes % Cancelled Lymphocytes % (Manual) Monocytes % Cancelled Monocytes % (Manual) Eosinophils % Cancelled Eosinophils % (Manual) Basophils % Cancelled Basophils % (Manual) Myelocytes % (Man) Promyelocytes % (Man) Blast Cells % (Manual) Nucleated RBC % Cancelled Metamyelocytes Hypochromia Platelet Estimate Cancelled Platelet Comment Cancelled Polychromasia Poikilocytosis Anisocytosis Microcytosis Macrocytosis PT with INR Cancelled INR Cancelled PTT (Actin FS) Cancelled VBG pH 7.52 H POC VBG pCO2 29.6 L POC VBG pO2 110 H VBG HCO3 24.1 VBG O2 Sat (Najma) 98.1 H VBG Base Excess 2.3 H Sodium Potassium Chloride Carbon Dioxide Anion Gap BUN Creatinine Creat Clearance w eGFR Random Glucose Lactic Acid Calcium Phosphorus Magnesium Total Bilirubin Direct Bilirubin AST ALT Alkaline Phosphatase Creatine Kinase Creatine Kinase Index CK-MB (CK-2) Troponin I Total Protein Albumin Urine Color Urine Appearance Urine pH Ur Specific Coleman Urine Protein Urine Glucose (UA) Urine Ketones Urine Blood Urine Nitrite Urine Bilirubin Urine Urobilinogen Ur Leukocyte Esterase Urine WBC (Auto) Urine RBC (Auto) Urine Casts (Auto) U Pathogenic Cast Auto U Epithel Cells (Auto) Urine Bacteria (Auto) 07/21/18 07/21/18 07/21/18 15:08 15:08 16:21 WBC 13.0 H Corrected WBC (auto) RBC 4.41 Hgb 12.3 Hct 39.7 MCV 90.0 MCH 27.9 MCHC 31.0 L RDW 15.8 H Plt Count 176 MPV 11.9 H Absolute Neuts (auto) 10.8 H Neutrophils % 82.9 H Neutrophils % (Manual) Band Neutrophils % Lymphocytes % 11.2 Lymphocytes % (Manual) Monocytes % 5.6 Monocytes % (Manual) Eosinophils % 0.0 Eosinophils % (Manual) Basophils % 0.3 Basophils % (Manual) Myelocytes % (Man) Promyelocytes % (Man) Blast Cells % (Manual) Nucleated RBC % 1 H Metamyelocytes Hypochromia Platelet Estimate Platelet Comment Polychromasia Poikilocytosis Anisocytosis Microcytosis Macrocytosis PT with INR INR PTT (Actin FS) VBG pH POC VBG pCO2 POC VBG pO2 VBG HCO3 VBG O2 Sat (Najma) VBG Base Excess Sodium 159 H Potassium 4.0 Chloride 126 H Carbon Dioxide 29 Anion Gap 4 L BUN 62 H Creatinine 1.9 H Creat Clearance w eGFR 25.18 Random Glucose 221 H Lactic Acid 2.9 H* Calcium 11.1 H Phosphorus Magnesium Total Bilirubin 0.6 Direct Bilirubin AST 199 H ALT 111 H Alkaline Phosphatase 884 H Creatine Kinase 365 H Creatine Kinase Index 0.2 CK-MB (CK-2) < 1.0 Troponin I 0.04 Total Protein 7.1 Albumin 2.2 L Urine Color Urine Appearance Urine pH Ur Specific Coleman Urine Protein Urine Glucose (UA) Urine Ketones Urine Blood Urine Nitrite Urine Bilirubin Urine Urobilinogen Ur Leukocyte Esterase Urine WBC (Auto) Urine RBC (Auto) Urine Casts (Auto) U Pathogenic Cast Auto U Epithel Cells (Auto) Urine Bacteria (Auto) 07/21/18 07/21/18 07/21/18 16:21 18:38 20:35 WBC Corrected WBC (auto) RBC Hgb Hct MCV MCH MCHC RDW Plt Count MPV Absolute Neuts (auto) Neutrophils % Neutrophils % (Manual) Band Neutrophils % Lymphocytes % Lymphocytes % (Manual) Monocytes % Monocytes % (Manual) Eosinophils % Eosinophils % (Manual) Basophils % Basophils % (Manual) Myelocytes % (Man) Promyelocytes % (Man) Blast Cells % (Manual) Nucleated RBC % Metamyelocytes Hypochromia Platelet Estimate Platelet Comment Polychromasia Poikilocytosis Anisocytosis Microcytosis Macrocytosis PT with INR 16.20 H INR 1.37 H PTT (Actin FS) 31.9 VBG pH POC VBG pCO2 POC VBG pO2 VBG HCO3 VBG O2 Sat (Najma) VBG Base Excess Sodium Potassium Chloride Carbon Dioxide Anion Gap BUN Creatinine Creat Clearance w eGFR Random Glucose Lactic Acid 1.9 Calcium Phosphorus Magnesium Total Bilirubin Direct Bilirubin AST ALT Alkaline Phosphatase Creatine Kinase Creatine Kinase Index CK-MB (CK-2) Troponin I Total Protein Albumin Urine Color Dk yellow Urine Appearance Cloudy Urine pH 5.0 Ur Specific Coleman 1.027 Urine Protein 1+ H Urine Glucose (UA) Negative Urine Ketones Negative Urine Blood 1+ H Urine Nitrite Negative Urine Bilirubin Negative Urine Urobilinogen 1.0 Ur Leukocyte Esterase 2+ H Urine WBC (Auto) 57 Urine RBC (Auto) 8 Urine Casts (Auto) 25 U Pathogenic Cast Auto Negative U Epithel Cells (Auto) 4.8 Urine Bacteria (Auto) 108.9 07/21/18 07/22/18 07/22/18 21:28 06:30 06:30 WBC 14.7 H Corrected WBC (auto) RBC 4.19 Hgb 11.5 Hct 37.4 MCV 89.4 MCH 27.6 MCHC 30.8 L RDW 15.6 Plt Count 142 MPV 11.5 H Absolute Neuts (auto) 12.1 H Neutrophils % 82.1 Neutrophils % (Manual) 72.0 Band Neutrophils % 4.0 Lymphocytes % 12.0 Lymphocytes % (Manual) 16.0 Monocytes % 5.2 Monocytes % (Manual) 7 Eosinophils % 0.4 D Eosinophils % (Manual) 0.0 Basophils % 0.3 Basophils % (Manual) 0.0 Myelocytes % (Man) 1 Promyelocytes % (Man) 0 Blast Cells % (Manual) 0 Nucleated RBC % 0 Metamyelocytes 0 Hypochromia 0 Platelet Estimate Normal Platelet Comment Polychromasia 0 Poikilocytosis 1+ Anisocytosis 1+ Microcytosis 1+ Macrocytosis 0 PT with INR INR PTT (Actin FS) VBG pH POC VBG pCO2 POC VBG pO2 VBG HCO3 VBG O2 Sat (Najma) VBG Base Excess Sodium 160 H 159 H Potassium 3.3 L 3.6 Chloride 126 H 125 H Carbon Dioxide 28 28 Anion Gap 7 L 5 L BUN 60 H 47 H Creatinine 1.7 H 1.4 H Creat Clearance w eGFR 28.63 35.82 Random Glucose 231 H 159 H Lactic Acid Calcium 10.3 H 10.5 H Phosphorus 2.9 Magnesium 2.8 H Total Bilirubin 0.7 Direct Bilirubin 0.4 H AST 187 H ALT 90 H Alkaline Phosphatase 901 H Creatine Kinase Creatine Kinase Index CK-MB (CK-2) Troponin I 0.05 Total Protein 6.6 Albumin 2.1 L Urine Color Urine Appearance Urine pH Ur Specific Coleman Urine Protein Urine Glucose (UA) Urine Ketones Urine Blood Urine Nitrite Urine Bilirubin Urine Urobilinogen Ur Leukocyte Esterase Urine WBC (Auto) Urine RBC (Auto) Urine Casts (Auto) U Pathogenic Cast Auto U Epithel Cells (Auto) Urine Bacteria (Auto) Active Medications Home Medications Medication Instructions Recorded Acetaminophen [Tylenol -] 650 mg PO BID 07/21/18 Amlodipine Besylate 5 mg PO DAILY 07/21/18 Aspirin [ASA -] 81 mg PO DAILY 07/21/18 Cholecalciferol (Vitamin D3) 2,000 unit PO DAILY 07/21/18 [Vitamin D3 -] Docusate Sodium [Colace -] 200 mg PO HS 07/21/18 Levothyroxine Sodium [Levo-T] 50 mcg PO DAILY 07/21/18 Mirtazapine [Remeron -] 15 mg PO HS 07/21/18 Multivitamins [Tab-A-Vit -] 1 tab PO DAILY 07/21/18 Polyethylene Glycol 3350 [Miralax 17 gm PO DAILY 07/21/18 (For Daily Use) -] Risperidone [Risperdal] 0.25 mg PO DAILY 07/21/18 Valsartan [Diovan] 80 mg PO DAILY 07/21/18 Current Medications Heparin Sodium (Porcine) (Heparin -) 5,000 unit SQ TID [facility] Admin: 07/22/18 14:14 Dose: 5,000 unit Piperacillin Sod/Tazobactam (Sod 2.25 gm/ Dextrose) 50 mls @ 100 mls/hr IVPB Q6H-IV DANTE; Protocol Last Admin: 07/22/18 14:13 Dose: 100 mls/hr Dextrose (D5w -) 1,000 mls @ 125 mls/hr IV ASDIR DANTE ASSESSMENT/PLAN: Pt. is an 82 y.o. F w/ PMHx. of HTN, HLD, Hypothyroidism, dementia, and schizophrenia presenting from [facility], with AMS, fever and hypotension. #Acute metabolic Encephalopathy 2/2 sepsis 2/2 UTI hypotension corrected w/ NS bolus f/u UCx. and BCx. cultures Cr. 1.9-->1.7-->1.4 (baseline is 1.0 indicating KATIE) will c/w fluid resuscitation c/w Zosyn 2.25 Q8H; ID Consult (Dr. Dumont) appreciated Speech and swallow appreciated-dysphagia puree, magic cup, liquids w/ Tspoon, meds crushed in applesauce #Hypernatremia Likely secondary to UTI and dehydration will start D5W @ 100 for 6 hours and then f/u BMP at 9pm BMP Q6H Nephrology consult (Dr. Fermin) appreciated Calculated free water deficit of 3.8L 1.8L needed to get Na to 149 per Ne #Hypercalcemmia f/u PTH Ca2+ corrected: 12.5-->11.7-->12.0 f/u Nephrology recommendations #Transaminitis Elevated LFTs as compared to CMP done 2 weeks ago where they were elevated as well GGT elevated, f/u Abd. US f/u ALP isoenzymes #DVT Ppx. Hep SQ f/u RLE Duplex #Code Full code ([facility] [place] [phone], in process of making advance directives , will f/u) Visit type - Emergency Visit Emergency Visit: Yes ED Registration Date: 07/21/18 Care time: The patient presented to the Emergency Department on the above date and was hospitalized for further evaluation of their emergent condition. - New Patient This patient is new to me today: No - Critical Care Critical Care patient: No - Discharge Referral Referred to [facility] Med [facility] No
[2018-07-22] MEDS ORDERED: DEXTROSE 5%-WATER - 1,000 ML IV SCH (14:15)
[2018-07-22 14:31] LABS: GAMMA GLUTAMYL TRANSPEPTIDASE 95 U/L (5-85)
--- NOTE | 2018-07-22 14:54 | PN ---
Teaching Attending Note Name of Resident: Bhavin Andrew ATTENDING PHYSICIAN STATEMENT I saw and evaluated the patient. I reviewed the resident's note and discussed the case with the resident. I agree with the resident's findings and plan as documented. SUBJECTIVE: No complaints. Dementia, unable to participate in medical interview OBJECTIVE: Afebrile, Hemodynamically Stable. Last Vital Signs Temp Pulse Resp BP Pulse Ox 98.1 F 93 H 20 115/50 L 96 07/22/18 06:00 07/22/18 06:00 07/22/18 06:00 07/22/18 06:00 07/22/18 04:41 HEENT - Atraumatic, Normocephalic. Heart - S1, S2, RRR Lungs - clear to auscultation Abdomen - Soft, non-tender. Bowel Sounds normal. Extremities - RLE swelling/tenderness Laboratory Results - last 24 hr 07/21/18 07/21/18 07/21/18 15:08 15:08 15:08 WBC Cancelled Corrected WBC (auto) Cancelled RBC Cancelled Hgb Cancelled Hct Cancelled MCV Cancelled MCH Cancelled MCHC Cancelled RDW Cancelled Plt Count Cancelled MPV Cancelled Absolute Neuts (auto) Cancelled Neutrophils % Cancelled Neutrophils % (Manual) Band Neutrophils % Lymphocytes % Cancelled Lymphocytes % (Manual) Monocytes % Cancelled Monocytes % (Manual) Eosinophils % Cancelled Eosinophils % (Manual) Basophils % Cancelled Basophils % (Manual) Myelocytes % (Man) Promyelocytes % (Man) Blast Cells % (Manual) Nucleated RBC % Cancelled Metamyelocytes Hypochromia Platelet Estimate Cancelled Platelet Comment Cancelled Polychromasia Poikilocytosis Anisocytosis Microcytosis Macrocytosis PT with INR Cancelled INR Cancelled PTT (Actin FS) Cancelled VBG pH 7.52 H POC VBG pCO2 29.6 L POC VBG pO2 110 H VBG HCO3 24.1 VBG O2 Sat (Najma) 98.1 H VBG Base Excess 2.3 H Sodium Potassium Chloride Carbon Dioxide Anion Gap BUN Creatinine Creat Clearance w eGFR Random Glucose Lactic Acid Calcium Phosphorus Magnesium Total Bilirubin Direct Bilirubin GGT AST ALT Alkaline Phosphatase Creatine Kinase Creatine Kinase Index CK-MB (CK-2) Troponin I Total Protein Albumin Urine Color Urine Appearance Urine pH Ur Specific [place] Urine Protein Urine Glucose (UA) Urine Ketones Urine Blood Urine Nitrite Urine Bilirubin Urine Urobilinogen Ur Leukocyte Esterase Urine WBC (Auto) Urine RBC (Auto) Urine Casts (Auto) U Pathogenic Cast Auto U Epithel Cells (Auto) Urine Bacteria (Auto) 07/21/18 07/21/18 07/21/18 15:08 15:08 16:21 WBC 13.0 H Corrected WBC (auto) RBC 4.41 Hgb 12.3 Hct 39.7 MCV 90.0 MCH 27.9 MCHC 31.0 L RDW 15.8 H Plt Count 176 MPV 11.9 H Absolute Neuts (auto) 10.8 H Neutrophils % 82.9 H Neutrophils % (Manual) Band Neutrophils % Lymphocytes % 11.2 Lymphocytes % (Manual) Monocytes % 5.6 Monocytes % (Manual) Eosinophils % 0.0 Eosinophils % (Manual) Basophils % 0.3 Basophils % (Manual) Myelocytes % (Man) Promyelocytes % (Man) Blast Cells % (Manual) Nucleated RBC % 1 H Metamyelocytes Hypochromia Platelet Estimate Platelet Comment Polychromasia Poikilocytosis Anisocytosis Microcytosis Macrocytosis PT with INR INR PTT (Actin FS) VBG pH POC VBG pCO2 POC VBG pO2 VBG HCO3 VBG O2 Sat (Najma) VBG Base Excess Sodium 159 H Potassium 4.0 Chloride 126 H Carbon Dioxide 29 Anion Gap 4 L BUN 62 H Creatinine 1.9 H Creat Clearance w eGFR 25.18 Random Glucose 221 H Lactic Acid 2.9 H* Calcium 11.1 H Phosphorus Magnesium Total Bilirubin 0.6 Direct Bilirubin GGT AST 199 H ALT 111 H Alkaline Phosphatase 884 H Creatine Kinase 365 H Creatine Kinase Index 0.2 CK-MB (CK-2) < 1.0 Troponin I 0.04 Total Protein 7.1 Albumin 2.2 L Urine Color Urine Appearance Urine pH Ur Specific [place] Urine Protein Urine Glucose (UA) Urine Ketones Urine Blood Urine Nitrite Urine Bilirubin Urine Urobilinogen Ur Leukocyte Esterase Urine WBC (Auto) Urine RBC (Auto) Urine Casts (Auto) U Pathogenic Cast Auto U Epithel Cells (Auto) Urine Bacteria (Auto) 07/21/18 07/21/18 07/21/18 16:21 18:38 20:35 WBC Corrected WBC (auto) RBC Hgb Hct MCV MCH MCHC RDW Plt Count MPV Absolute Neuts (auto) Neutrophils % Neutrophils % (Manual) Band Neutrophils % Lymphocytes % Lymphocytes % (Manual) Monocytes % Monocytes % (Manual) Eosinophils % Eosinophils % (Manual) Basophils % Basophils % (Manual) Myelocytes % (Man) Promyelocytes % (Man) Blast Cells % (Manual) Nucleated RBC % Metamyelocytes Hypochromia Platelet Estimate Platelet Comment Polychromasia Poikilocytosis Anisocytosis Microcytosis Macrocytosis PT with INR 16.20 H INR 1.37 H PTT (Actin FS) 31.9 VBG pH POC VBG pCO2 POC VBG pO2 VBG HCO3 VBG O2 Sat (Najma) VBG Base Excess Sodium Potassium Chloride Carbon Dioxide Anion Gap BUN Creatinine Creat Clearance w eGFR Random Glucose Lactic Acid 1.9 Calcium Phosphorus Magnesium Total Bilirubin Direct Bilirubin GGT AST ALT Alkaline Phosphatase Creatine Kinase Creatine Kinase Index CK-MB (CK-2) Troponin I Total Protein Albumin Urine Color Dk yellow Urine Appearance Cloudy Urine pH 5.0 Ur Specific [place] 1.027 Urine Protein 1+ H Urine Glucose (UA) Negative Urine Ketones Negative Urine Blood 1+ H Urine Nitrite Negative Urine Bilirubin Negative Urine Urobilinogen 1.0 Ur Leukocyte Esterase 2+ H Urine WBC (Auto) 57 Urine RBC (Auto) 8 Urine Casts (Auto) 25 U Pathogenic Cast Auto Negative U Epithel Cells (Auto) 4.8 Urine Bacteria (Auto) 108.9 07/21/18 07/22/18 07/22/18 21:28 06:30 06:30 WBC 14.7 H Corrected WBC (auto) RBC 4.19 Hgb 11.5 Hct 37.4 MCV 89.4 MCH 27.6 MCHC 30.8 L RDW 15.6 Plt Count 142 MPV 11.5 H Absolute Neuts (auto) 12.1 H Neutrophils % 82.1 Neutrophils % (Manual) 72.0 Band Neutrophils % 4.0 Lymphocytes % 12.0 Lymphocytes % (Manual) 16.0 Monocytes % 5.2 Monocytes % (Manual) 7 Eosinophils % 0.4 D Eosinophils % (Manual) 0.0 Basophils % 0.3 Basophils % (Manual) 0.0 Myelocytes % (Man) 1 Promyelocytes % (Man) 0 Blast Cells % (Manual) 0 Nucleated RBC % 0 Metamyelocytes 0 Hypochromia 0 Platelet Estimate Normal Platelet Comment Polychromasia 0 Poikilocytosis 1+ Anisocytosis 1+ Microcytosis 1+ Macrocytosis 0 PT with INR INR PTT (Actin FS) VBG pH POC VBG pCO2 POC VBG pO2 VBG HCO3 VBG O2 Sat (Najma) VBG Base Excess Sodium 160 H 159 H Potassium 3.3 L 3.6 Chloride 126 H 125 H Carbon Dioxide 28 28 Anion Gap 7 L 5 L BUN 60 H 47 H Creatinine 1.7 H 1.4 H Creat Clearance w eGFR 28.63 35.82 Random Glucose 231 H 159 H Lactic Acid Calcium 10.3 H 10.5 H Phosphorus 2.9 Magnesium 2.8 H Total Bilirubin 0.7 Direct Bilirubin 0.4 H GGT 95 H AST 187 H ALT 90 H Alkaline Phosphatase 901 H Creatine Kinase Creatine Kinase Index CK-MB (CK-2) Troponin I 0.05 Total Protein 6.6 Albumin 2.1 L Urine Color Urine Appearance Urine pH Ur Specific [place] Urine Protein Urine Glucose (UA) Urine Ketones Urine Blood Urine Nitrite Urine Bilirubin Urine Urobilinogen Ur Leukocyte Esterase Urine WBC (Auto) Urine RBC (Auto) Urine Casts (Auto) U Pathogenic Cast Auto U Epithel Cells (Auto) Urine Bacteria (Auto) Current Medications Generic Name Dose Route Start Last Admin Trade Name Freq PRN Reason Stop Dose Admin Heparin Sodium (Porcine) 5,000 unit 07/22/18 06:00 07/22/18 14:14 Heparin - SQ 5,000 unit TID DANTE Administration Piperacillin Sod/Tazobactam 50 mls @ 100 mls/hr 07/22/18 15:00 07/22/18 14:13 Sod 2.25 gm/ Dextrose IVPB 100 mls/hr Q6H-IV DANTE Administration Protocol Dextrose 1,000 mls @ 125 mls/hr 07/22/18 14:15 D5w - IV ASDIR DANTE ASSESSMENT AND PLAN: 82 year old female from [facility] with HTN, HLD, Hypothyroidism, Dementia, Schizophrenia, with decreased responsiveness, found to be febrile 100.9 on presentation with tachycardia, leukocytosis, hypernatremia, KATIE, elevated lactate. 1. Sepsis secondary to UTI +/- Proctitis. Urine Cx pending. Continue Zosyn pending Cx result. CT A/P - rectal thickening with charley-rectal inflammation Will consult Surgery. 2. Acute Metabolic Encephalopathy sec to UTI +/- Hypercalcemia +/- Hypernatremia IV Hydration and IV Abx. Baseline Dementia - will monitor. Normally on remeron and risperidone apaprently - need to confirm meds. 3. RLE swelling - US Duplex to exclude DVT. 4. KATIE sec to volume depletion sec to Sepsis/UTI - improving with IV hydration. No obstruction on abdominal/pelvis imaging. 5. Hypernatremia - sec to dehydration - monitor Na level in response to rehydration. Nephrology consulted. 6. Hypercalcemia - etiology unclear - PTH/Vitamin D requested. IV hydration ongoing. Nephrology consulted for further eval and recommendations. 7. Elevated Transaminases - etiology unclear. Hepatitis panel requested. Will order Abdominal US. Unclear whether on statin at home, will clarify. 8. HTN/HLD/Hypothyroidism - ?valsartan/norvasc and Levothyroxine - will confirm. DVT Px - Heparin SQ
--- NOTE | 2018-07-22 15:32 | CONSULT ---
Consult Consult Specialty:: Nephrology Reason for Consultation:: KATIE and hypernatremia - History of Present Illness Chief Complaint: sent in for change in mental status History of Present Illness: Pt is an 82 year old female with pmhx of HTN, HLD< dementia, hypothyroidism, and Schizophrenia who was sent in from the [place] for altered mental status. She was found to be in renal failure and was found to be hypernatremic. She was also found to be hypercalcemic. She is unable to give history. She was also found to be hypotensive in the NH. She has advanced dementia and is not interactive at baseline. 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: Dementia Cardio/Vascular: Yes: HTN, Hyperlipdemia Psych: Yes: Schizophrenia Endocrine: Yes: Hypothyroidism - Alcohol/Substance Use Hx Alcohol Use: No - Smoking History Smoking history: Unknown if ever smoked - Social History Usual Living Arrangement: Long Term ADL: Support Services History of Recent Travel: No Home Medications - Allergies Allergies/Adverse Reactions: Allergies Allergy/AdvReac Type Severity Reaction Status Date / Time No Known Allergies Allergy Verified 07/21/18 14:44 - Home Medications Home Medications: Ambulatory Orders Acetaminophen [Tylenol -] 650 mg PO BID 07/21/18 Amlodipine Besylate 5 mg PO DAILY 07/21/18 Aspirin [ASA -] 81 mg PO DAILY 07/21/18 Cholecalciferol (Vitamin D3) [Vitamin D3 -] 2,000 unit PO DAILY 07/21/18 Docusate Sodium [Colace -] 200 mg PO HS 07/21/18 Levothyroxine Sodium [Levo-T] 50 mcg PO DAILY 07/21/18 Mirtazapine [Remeron -] 15 mg PO HS 07/21/18 Multivitamins [Tab-A-Vit -] 1 tab PO DAILY 07/21/18 Polyethylene Glycol 3350 [Miralax (For Daily Use) -] 17 gm PO DAILY 07/21/18 Risperidone [Risperdal] 0.25 mg PO DAILY 07/21/18 Valsartan [Diovan] 80 mg PO DAILY 07/21/18 Family Disease History - Family Disease History Family History: Unable to Obtain Review of Systems Unable to obtain ROS, reason: not verbal Physical Exam Vital Signs: Vital Signs Temperature 99.5 F 07/22/18 15:18 Pulse Rate 88 07/22/18 15:18 Respiratory Rate 18 07/22/18 15:18 Blood Pressure 139/83 07/22/18 15:18 O2 Sat by Pulse Oximetry (%) 96 07/22/18 04:41 Constitutional: Yes: Calm Eyes: Yes: Conjunctiva Clear HENT: Yes: Atraumatic Cardiovascular: Yes: S1, S2 Respiratory: Yes: CTA Bilaterally Gastrointestinal: Yes: Soft Renal/: Yes: Incontinence Musculoskeletal: Yes: Muscle Weakness Edema: No Neurological: Yes: Confusion Labs: CBC, BMP 07/22/18 06:30 07/22/18 06:30 Imaging - Results Chest X-ray: Report Reviewed Problem List - Problems (1) Hypernatremia Code(s): E87.0 - HYPEROSMOLALITY AND HYPERNATREMIA (2) Hypercalcemia Code(s): E83.52 - HYPERCALCEMIA (3) Sepsis Code(s): A41.9 - SEPSIS, UNSPECIFIED ORGANISM Qualifiers: Sepsis type: sepsis due to unspecified organism Qualified Code(s): A41.9 - Sepsis, unspecified organism (4) UTI (urinary tract infection) Code(s): N39.0 - URINARY TRACT INFECTION, SITE NOT SPECIFIED Assessment/Plan Current Medications Generic Name Dose Route Start Last Admin Trade Name Freq PRN Reason Stop Dose Admin Heparin Sodium (Porcine) 5,000 unit 07/22/18 06:00 07/22/18 14:14 Heparin - SQ 5,000 unit TID DANTE Administration Piperacillin Sod/Tazobactam 50 mls @ 100 mls/hr 07/22/18 15:00 07/22/18 14:13 Sod 2.25 gm/ Dextrose IVPB 100 mls/hr Q6H-IV DANTE Administration Protocol Dextrose 1,000 mls @ 125 mls/hr 07/22/18 14:15 07/22/18 15:00 D5w - IV 125 mls/hr ASDIR DANTE Administration Impression 1. KATIE 2. hypernatremia 3. hypercalcemia 4. UTI 5. dementia 6. schizophrenia 7. HTN 8. HLD Plan - based on a weight of 135, pt has a free water deficit of about 3.7 liters - she will need about 1.8 liters to get her to a sodium of 149 - change fluids from ns to d5w - cont to monitor sodium level - check pth level - monitor calcium - follow cultures - abx per primary team
[2018-07-22] MEDS: DEXTROSE 5%-WATER - 1,000 ML IV SCH (19:15)
[2018-07-23] MEDS ORDERED: DEXTROSE 5%-WATER - 50 ML IVPB ONE ×4 (02:24→22:11)
[2018-07-23] MEDS ORDERED: PIPERACILLIN/TAZOBACTAM 2.25 GM VIAL IVPB ONE ×4 (02:24→22:11)
[2018-07-23] MEDS: PIPERACILLIN/TAZOB 2.25 GM 2.25 GM in DEXTROSE 5%-WATER - 50 ML IVPB SCH ×4 (02:37→22:20)
[2018-07-23] MEDS: DEXTROSE 5%-WATER - 1,000 ML IV SCH ×2 (02:41→16:36)
[2018-07-23 03:03] LABS: ANION GAP 4 MMOL/L (8-16); BLOOD UREA NITROGEN 36 mg/dL (7-18); CALCIUM 9.8 mg/dL (8.5-10.1); CHLORIDE 120 mmol/L (98-107); CO2 29 mmol/L (21-32); CREATININE 1.3 mg/dL (0.55-1.3); GLUCOSE,RANDOM 188 mg/dL (74-106); POTASSIUM 3.5 mmol/L (3.5-5.1); SODIUM 153 mmol/L (136-145)
[2018-07-23] MEDS: HEPARIN NA (PORCINE) 5,000 UNITS/ML 1ML VIAL SQ SCH ×3 (06:02→22:20)
[2018-07-23] MEDS ORDERED: PT OWN MED DRAWER 7, Y5N ONE ×2 (08:53→12:07)
[2018-07-23 09:23] LABS: BASO % 0.4 % (0-2.0); EOS % 0.3 % (0-4.5); HEMATOCRIT 34.6 % (32.4-45.2); LYMPH % 12.6 % (8-40); MCH 28.3 pg (25.7-33.7); MCHC 31.7 g/dl (32.0-36.0); MEAN CELL VOLUME 89.2 fl (80-96); MEAN PLT VOLUME 11.6 fl (7.5-11.1); MONO % 3.4 % (3.8-10.2); NEUT % 83.3 % (42.8-82.8); PLATELET COUNT 118 K/MM3 (134-434); RBC 3.88 M/mm3 (3.60-5.2); RDW 15.7 % (11.6-15.6); WHITE BLOOD COUNT 10.2 K/mm3 (4.0-10.0)
[2018-07-23 09:58] LABS: ALBUMIN 1.8 g/dl (3.4-5.0); ALK PHOS 878 U/L (45-117); ANION GAP 4 MMOL/L (8-16); BILIRUBIN,DIRECT 0.2 mg/dL (0.0-0.2); BILIRUBIN,TOTAL 0.5 mg/dL (0.2-1); BLOOD UREA NITROGEN 31 mg/dL (7-18); CALCIUM 10.2 mg/dL (8.5-10.1); CHLORIDE 116 mmol/L (98-107); CO2 29 mmol/L (21-32); CREATININE 1.3 mg/dL (0.55-1.3); GLUCOSE,RANDOM 221 mg/dL (74-106); POTASSIUM 3.3 mmol/L (3.5-5.1); SGOT/AST 110 U/L (15-37); SGPT/ALT 60 U/L (13-61); SODIUM 149 mmol/L (136-145); TOT PROT 6.3 g/dl (6.4-8.2)
[2018-07-23] MEDS ORDERED: POTASSIUM CITRATE/CITRIC ACID 2 MEQ/ML ML PO ONE (11:45)
--- NOTE | 2018-07-23 11:47 | PN ---
Physical Exam: SUBJECTIVE: Patient seen and examined at bedside. She is able to answer some questions, but stares into space after 2-3 questions and is unable to answer further questions. She was only able to tell me that she is not in pain. OBJECTIVE: Vital Signs Period Temp Pulse Resp BP Sys/Shankar Pulse Ox Last 24 Hr 98.0 F-99.5 F 80-89 18-20 128-156/72-87 95 GENERAL: A&Ox1, no acute distress, patient is able to turn to her name and answer basic questions, but quickly begins to stare and not answer questions. EYES: PERRLA, EOMI ENT: Dry mucus membranes NECK: No JVD LUNGS: CTA, no wheezes HEART: RRR, systolic murmur noted on exam ABDOMEN: Soft, nontender, BS present MUSCULOSKELETAL: No CVA Tenderness EXTREMITIES: 2+ pulses, no edema. NEUROLOGICAL: unable to assess due to mental status Laboratory Results - last 24 hr 07/22/18 07/23/18 07/23/18 06:30 02:15 09:02 WBC 10.2 H RBC 3.88 Hgb 11.0 Hct 34.6 MCV 89.2 MCH 28.3 MCHC 31.7 L RDW 15.7 H Plt Count 118 L MPV 11.6 H Absolute Neuts (auto) 8.5 H Neutrophils % 83.3 H Lymphocytes % 12.6 Monocytes % 3.4 L Eosinophils % 0.3 Basophils % 0.4 Nucleated RBC % 0 Sodium 159 H 153 H Potassium 3.6 3.5 Chloride 125 H 120 H Carbon Dioxide 28 29 Anion Gap 5 L 4 L BUN 47 H 36 H Creatinine 1.4 H 1.3 Creat Clearance w eGFR 35.82 39.02 Random Glucose 159 H 188 H Calcium 10.5 H 9.8 Phosphorus 2.9 Magnesium 2.8 H Total Bilirubin 0.7 Direct Bilirubin 0.4 H GGT 95 H AST 187 H ALT 90 H Alkaline Phosphatase 901 H Total Protein 6.6 Albumin 2.1 L 07/23/18 09:02 WBC RBC Hgb Hct MCV MCH MCHC RDW Plt Count MPV Absolute Neuts (auto) Neutrophils % Lymphocytes % Monocytes % Eosinophils % Basophils % Nucleated RBC % Sodium 149 H Potassium 3.3 L Chloride 116 H Carbon Dioxide 29 Anion Gap 4 L BUN 31 H Creatinine 1.3 Creat Clearance w eGFR 39.02 Random Glucose 221 H Calcium 10.2 H Phosphorus Magnesium Total Bilirubin 0.5 Direct Bilirubin 0.2 GGT AST 110 H ALT 60 Alkaline Phosphatase 878 H Total Protein 6.3 L Albumin 1.8 L Active Medications Generic Name Dose Route Start Last Admin Trade Name Freq PRN Reason Stop Dose Admin Amlodipine Besylate 5 mg 07/24/18 10:00 Norvasc - PO DAILY [facility] Aspirin 81 mg 07/24/18 10:00 Asa - PO DAILY [facility] Heparin Sodium (Porcine) 5,000 unit 07/22/18 06:00 07/23/18 06:02 Heparin - SQ 5,000 unit TID DANTE Administration Piperacillin Sod/Tazobactam 50 mls @ 100 mls/hr 07/22/18 15:00 07/23/18 09:04 Sod 2.25 gm/ Dextrose IVPB 100 mls/hr Q6H-IV DANTE Administration Protocol Dextrose 1,000 mls @ 100 mls/hr 07/22/18 15:40 07/23/18 02:41 D5w - IV 100 mls/hr ASDIR DANTE Administration Levothyroxine Sodium 50 mcg 07/24/18 07:00 Synthroid - PO DAILY@0700 DANTE Valsartan 80 mg 07/24/18 10:00 Diovan - PO DAILY [facility] Microbiology 07/21/18 18:38 Urine - Urine - Catheterized Urine Culture - Preliminary Non Lactose Fermenting Gnb Pending Organism 07/21/18 15:08 Blood - Peripheral Venous Blood Culture - Preliminary NO GROWTH OBTAINED AFTER 24 HOURS, INCUBATION TO CONTINUE FOR 4 DAYS. 07/21/18 15:08 Blood - Peripheral Venous Blood Culture - Preliminary NO GROWTH OBTAINED AFTER 24 HOURS, INCUBATION TO CONTINUE FOR 4 DAYS. CBC, BMP 07/23/18 09:02 07/23/18 09:02 ASSESSMENT/PLAN: 82 year old female with a past medical history of HTN, HLD, Hypothyroidism, dementia, and schizophrenia presenting from [facility], with AMS, fever and hypotension. #Acute metabolic Encephalopathy 2/2 sepsis vs metabolic: likely a result of either metabolic derangements vs sepsis/UTI, improving, but does not appear at baseline; sepsis could be from UTI or proctitis seen on CT -continue IV fluids w/ D5W -cultures growing gram - bacilli, non-lactose fermenting in the urine -continue zosyn -ID consulted #Hypernatremia: improving, Na 149 today, likely 2/2 fluid depletion -renal following, continue D5W -BMP Q6h and re-evaluate fluids Nephrology consult (Dr. Fermin) appreciated #Hypercalcemia: improved, but still elevated -PTH ordered, will follow #Transaminitis: Alk Phos still high, mildly improved compared to yesterday -US negative #Prophylaxis -Hep SQ -duplex negative for DVT #Code Full code (HCP- Ben Small [phone], in process of making advance directives , will f/u) #Disposition -continue to monitor on med-surg, anticipate DC in 2-3 days Visit type - Emergency Visit Emergency Visit: No - New Patient This patient is new to me today: No - Critical Care Critical Care patient: No
--- NOTE | 2018-07-23 12:14 | PN ---
Progress Note (short form) - Note Progress Note: opens eyes no fevers Vital Signs Period Temp Pulse Resp BP Sys/Shankar Pulse Ox Last 24 Hr 98.0 F-99.5 F 80-89 18-20 128-156/72-87 95 cor-rrr lungs clear abd soft,nt ext no edema ct scan with proctitis CBC, BMP 07/23/18 09:02 07/23/18 09:02 Microbiology 07/21/18 18:38 Urine - Urine - Catheterized Urine Culture - Preliminary Non Lactose Fermenting Gnb Pending Organism 07/21/18 15:08 Blood - Peripheral Venous Blood Culture - Preliminary NO GROWTH OBTAINED AFTER 24 HOURS, INCUBATION TO CONTINUE FOR 4 DAYS. 07/21/18 15:08 Blood - Peripheral Venous Blood Culture - Preliminary NO GROWTH OBTAINED AFTER 24 HOURS, INCUBATION TO CONTINUE FOR 4 DAYS. Current Medications Amlodipine Besylate (Norvasc -) 5 mg PO DAILY [facility] Aspirin (Asa -) 81 mg PO DAILY [facility] Heparin Sodium (Porcine) (Heparin -) 5,000 unit SQ TID DANTE Last Admin: 07/23/18 06:02 Dose: 5,000 unit Piperacillin Sod/Tazobactam (Sod 2.25 gm/ Dextrose) 50 mls @ 100 mls/hr IVPB Q6H-IV DANTE; Protocol Last Admin: 07/23/18 09:04 Dose: 100 mls/hr Dextrose (D5w -) 1,000 mls @ 100 mls/hr IV ASDIR DANTE Last Admin: 07/23/18 02:41 Dose: 100 mls/hr Levothyroxine Sodium (Synthroid -) 50 mcg PO DAILY@0700 [facility] Valsartan (Diovan -) 80 mg PO DAILY [facility] a/p ?sepsis- f/u cultures hypernatremia/hypercalcemia/abnl lfts - improving proctitis by ct scan- ?goals of care, consider GI evaluation zosyn for today if cultures negative , will d/c antibiotics in am Problem List - Problems (1) Sepsis Code(s): A41.9 - SEPSIS, UNSPECIFIED ORGANISM Qualifiers: Sepsis type: sepsis due to unspecified organism Qualified Code(s): A41.9 - Sepsis, unspecified organism (2) Abnormal LFTs Code(s): R94.5 - ABNORMAL RESULTS OF LIVER FUNCTION STUDIES (3) Hypercalcemia Code(s): E83.52 - HYPERCALCEMIA (4) UTI (urinary tract infection) Code(s): N39.0 - URINARY TRACT INFECTION, SITE NOT SPECIFIED
--- NOTE | 2018-07-23 12:27 | PN ---
Teaching Attending Note Name of Resident: Nxion Connolly ATTENDING PHYSICIAN STATEMENT I saw and evaluated the patient. I reviewed the resident's note and discussed the case with the resident. I agree with the resident's findings and plan as documented. SUBJECTIVE: No complaints. Dementia, unable to fully participate in medical interview OBJECTIVE: Afebrile, Hemodynamically Stable. Last Vital Signs Temp Pulse Resp BP Pulse Ox 98.2 F 80 20 156/87 95 07/23/18 09:47 07/23/18 09:47 07/23/18 09:47 07/23/18 09:47 07/22/18 21:00 HEENT - Atraumatic, Normocephalic. Heart - S1, S2, RRR Lungs - clear to auscultation Abdomen - Soft, non-tender. Bowel Sounds normal. Extremities - Mild swelling RLE>LLE Neuro - AAO x 1-2. Moving all 4 extremities. Muted affected. Intermittently communicative Laboratory Results - last 24 hr 07/22/18 07/22/18 07/23/18 06:30 06:30 02:15 WBC RBC Hgb Hct MCV MCH MCHC RDW Plt Count MPV Absolute Neuts (auto) Neutrophils % Lymphocytes % Monocytes % Eosinophils % Basophils % Nucleated RBC % Sodium 159 H 153 H Potassium 3.6 3.5 Chloride 125 H 120 H Carbon Dioxide 28 29 Anion Gap 5 L 4 L BUN 47 H 36 H Creatinine 1.4 H 1.3 Creat Clearance w eGFR 35.82 39.02 Random Glucose 159 H 188 H Calcium 10.5 H 9.8 Phosphorus 2.9 Magnesium 2.8 H Total Bilirubin 0.7 Direct Bilirubin 0.4 H GGT 95 H AST 187 H ALT 90 H Alkaline Phosphatase 901 H Total Protein 6.6 Albumin 2.1 L PTH Intact 20 07/23/18 07/23/18 09:02 09:02 WBC 10.2 H RBC 3.88 Hgb 11.0 Hct 34.6 MCV 89.2 MCH 28.3 MCHC 31.7 L RDW 15.7 H Plt Count 118 L MPV 11.6 H Absolute Neuts (auto) 8.5 H Neutrophils % 83.3 H Lymphocytes % 12.6 Monocytes % 3.4 L Eosinophils % 0.3 Basophils % 0.4 Nucleated RBC % 0 Sodium 149 H Potassium 3.3 L Chloride 116 H Carbon Dioxide 29 Anion Gap 4 L BUN 31 H Creatinine 1.3 Creat Clearance w eGFR 39.02 Random Glucose 221 H Calcium 10.2 H Phosphorus Magnesium Total Bilirubin 0.5 Direct Bilirubin 0.2 GGT AST 110 H ALT 60 Alkaline Phosphatase 878 H Total Protein 6.3 L Albumin 1.8 L PTH Intact Current Medications Generic Name Dose Route Start Last Admin Trade Name Freq PRN Reason Stop Dose Admin Amlodipine Besylate 5 mg 07/24/18 10:00 Norvasc - PO DAILY [facility] Aspirin 81 mg 07/24/18 10:00 Asa - PO DAILY [facility] Heparin Sodium (Porcine) 5,000 unit 07/22/18 06:00 07/23/18 06:02 Heparin - SQ 5,000 unit TID DANTE Administration Piperacillin Sod/Tazobactam 50 mls @ 100 mls/hr 07/22/18 15:00 07/23/18 09:04 Sod 2.25 gm/ Dextrose IVPB 100 mls/hr Q6H-IV DANTE Administration Protocol Dextrose 1,000 mls @ 100 mls/hr 07/22/18 15:40 07/23/18 02:41 D5w - IV 100 mls/hr ASDIR DANTE Administration Levothyroxine Sodium 50 mcg 07/24/18 07:00 Synthroid - PO DAILY@0700 [facility] Valsartan 80 mg 07/24/18 10:00 Diovan - PO DAILY [facility] Home Medications Medication Instructions Recorded Acetaminophen [Tylenol -] 650 mg PO BID 07/21/18 Amlodipine Besylate 5 mg PO DAILY 07/21/18 Aspirin [ASA -] 81 mg PO DAILY 07/21/18 Cholecalciferol (Vitamin D3) 2,000 unit PO DAILY 07/21/18 [Vitamin D3 -] Docusate Sodium [Colace -] 200 mg PO HS 07/21/18 Levothyroxine Sodium [Levo-T] 50 mcg PO DAILY 07/21/18 Mirtazapine [Remeron -] 15 mg PO HS 07/21/18 Multivitamins [Tab-A-Vit -] 1 tab PO DAILY 07/21/18 Polyethylene Glycol 3350 [Miralax 17 gm PO DAILY 07/21/18 (For Daily Use) -] Risperidone [Risperdal] 0.25 mg PO DAILY 07/21/18 Valsartan [Diovan] 80 mg PO DAILY 07/21/18 ASSESSMENT AND PLAN: 82 year old female from [facility] with HTN, HLD, Hypothyroidism, Dementia, Schizophrenia, with decreased responsiveness, found to be febrile 100.9 on presentation with tachycardia, leukocytosis, hypernatremia, KATIE, elevated lactate. 1. Sepsis secondary to UTI +/- Proctitis - Asymptomatic Urine Cx shows NLFGNB (but low colony count). Continue Zosyn pending final ID and Sens. CT A/P - rectal thickening with charley-rectal inflammation - GI consulted. Currently afebrile, hemodynamically Stable. 2. Acute Metabolic Encephalopathy sec to UTI +/- Hypercalcemia +/- Hypernatremia Continue IV Hydration and IV Abx. Baseline Dementia and Schizophrenia- will monitor. Normally on remeron and risperidone apaprently - will resume once meds confirmed. Muted affected, slowed cognition - history of Hypothyroidism - dose levothyroxine not confirmed - will send TSH and confirm meds. 3. RLE swelling - US Duplex negative for DVT 4. KATIE sec to volume depletion sec to Sepsis/UTI - improving with IV hydration. No obstruction on abdominal/pelvis imaging. 5. Hypernatremia - sec to dehydration - improving with re-hydration. Nephrology consulted. 6. Hypercalcemia - etiology unclear - PTH normal. Repeat Calcium 10.2, normal when corrected for Albumin of 1.8. 7. Elevated Transaminases - etiology unclear, now improving. AST down to 110 from 199 and ALT down to 60 from 111. Hepatitis panel requested. Abdominal US negative. 8. HTN/HLD/Hypothyroidism - ?valsartan/norvasc and Levothyroxine - will confirm meds/doses. 9. Hypokalemia - repleted DVT Px - Heparin SQ
[2018-07-23] MEDS ORDERED: POTASSIUM CHLORIDE TABS 20 MEQ TABLET.ER (FP) PO ONE ×2 (13:00→13:32)
[2018-07-23 15:30] VITALS: BMI 21.1
--- NOTE | 2018-07-23 15:41 | PN ---
Progress Note (short form) - Note Progress Note: GI consultation dictated
--- NOTE | 2018-07-23 16:12 | CONS ---
DATE OF CONSULTATION: DATE OF DICTATION: 07/23/2018 The patient is an 82-year-old female from [facility]. She has a past medical history significant for hypertension, hyperlipidemia, hypothyroidism, dementia, schizophrenia, who was brought to the emergency room after being found less responsive while she was on the toilet. Patient is a poor historian. This history is obtained from the chart. Apparently she has become more confused and less alert progressively over the past couple of months. In the ER she was noted to have a leukocytosis, acute kidney injury, and an elevated lactic acid as well as deranged liver tests. She was treated with antibiotics at the time. She currently does not respond to any questions. PAST MEDICAL/SURGICAL HISTORY: As listed in the HPI. ALLERGIES: No known drug allergies. SOCIAL HISTORY: Denies. FAMILY HISTORY: Noncontributory. MEDICATIONS: Medications at the facility included acetaminophen, amlodipine, aspirin, vitamin D3, Colace, levothyroxine, Remeron, multivitamin, MiraLax, Risperdal, and Diovan. PHYSICAL EXAMINATION: Vital Signs: Temperature 100.1, pulse 98, blood pressure 160/82, pulse oximetry 98% on 2 L. Respiratory rate 20. General: No acute distress. HEENT: Anicteric sclerae. Cardiovascular: S1, S2, regular rate and rhythm. Lungs: Bilaterally clear to auscultation. Abdomen: Soft and nontender. Extremities: No edema. LABORATORY: White blood cell count on admission 13, currently 10. Hemoglobin and hematocrit 11/34, MCV 89, platelet count 118, INR 1.3. Sodium 149, potassium 3.3, BUN/creatinine 31/1.3. Glucose 221. Direct bilirubin 0.2, AST 110, ALT 60, alkaline phosphatase 878. Urine: Leukocyte esterase 2+. Hepatitis serologies are pending. She had a CT scan of the abdomen and pelvis which revealed rectal thickening and perirectal inflammation. No evidence of any other acute pathology. IMPRESSION: 1. Rectal thickening suspicious for proctocolitis. 2. Abnormal liver enzymes, alkaline phosphatase predominant. RECOMMENDATIONS: Continue her on antibiotics. She is currently being treated with Zosyn therapy. Would obtain stool culture, ova and parasites, and leukocytes and C. difficile if she were to have bowel movement. Trend her liver tests daily while hospitalized. Also fractionate her alkaline phosphatase and obtain abdominal ultrasound to further evaluate the biliary tree. Would hold off on any invasive procedures in this 82-year-old female at this time. She will continue to be followed by the GI service. DO ANDERSON PALMER/[id number]
--- NOTE | 2018-07-23 16:50 | PN ---
Progress Note (short form) - Note Progress Note: covering 1. KATIE 2. hypernatremia 3. hypercalcemia 4. UTI 5. dementia 6. schizophrenia 7. HTN 8. HLD Current Medications Amlodipine Besylate (Norvasc -) 5 mg PO DAILY [facility] Aspirin (Asa -) 81 mg PO DAILY [facility] Heparin Sodium (Porcine) (Heparin -) 5,000 unit SQ TID [facility] Last Admin: 07/23/18 14:18 Dose: 5,000 unit Piperacillin Sod/Tazobactam (Sod 2.25 gm/ Dextrose) 50 mls @ 100 mls/hr IVPB Q6H-IV [facility]; Protocol Last Admin: 07/23/18 14:17 Dose: 100 mls/hr Dextrose (D5w -) 1,000 mls @ 100 mls/hr IV ASDIR [facility] Last Admin: 07/23/18 16:36 Dose: 100 mls/hr Levothyroxine Sodium (Synthroid -) 50 mcg PO DAILY@0700 [facility] Valsartan (Diovan -) 80 mg PO DAILY [facility] Last Vital Signs Temp Pulse Resp BP Pulse Ox 100.1 F H 98 H 22 H 160/82 94 L 07/23/18 14:38 07/23/18 14:38 07/23/18 14:38 07/23/18 14:38 07/23/18 09:00 awake oral mucosa dry neck no jvd Lungs clear Heart reg ext no edema CBC, BMP 07/23/18 09:02 07/23/18 09:02 IMP hypernatremia improving
--- NOTE | 2018-07-23 18:04 | CON.PSY ---
Psychiatry Consult Chief Complaint: 82 christi old female a resident of [facility]. Has historybof SChizophrenia, and DEmentia and multiple chronic medical conditions. Admitted for AMS probablt secondary to UTI. Symptoms: reports: Memory Impairment - Previous Psychiatric Treatment Outpatient: None Inpatient: None - Previous Substance Abuse Treatment Outpatient: None Inpatient: None - Reason for Previous Treatment Reason for Previous Treatment: Psychotic Episode - Current Medications Current Medications: Active Medications Amlodipine Besylate (Norvasc -) 5 mg PO DAILY [facility] Aspirin (Asa -) 81 mg PO DAILY [facility] Heparin Sodium (Porcine) (Heparin -) 5,000 unit SQ TID [facility] Last Admin: 07/23/18 14:18 Dose: 5,000 unit Piperacillin Sod/Tazobactam (Sod 2.25 gm/ Dextrose) 50 mls @ 100 mls/hr IVPB Q6H-IV [facility]; Protocol Last Admin: 07/23/18 14:17 Dose: 100 mls/hr Dextrose (D5w -) 1,000 mls @ 100 mls/hr IV ASDIR [facility] Last Admin: 07/23/18 16:36 Dose: 100 mls/hr Levothyroxine Sodium (Synthroid -) 50 mcg PO DAILY@0700 [facility] Valsartan (Diovan -) 80 mg PO DAILY [facility] - Allergies Allergies: Allergies Allergy/AdvReac Type Severity Reaction Status Date / Time No Known Allergies Allergy Verified 07/21/18 14:44 - Current Living Status Usual Living Arrangement: [facility] - Current Mental Status Evaluation Appearance: Well Groomed Attitude: Guarded - Affect Affect: Constrictive Appropriateness: Not Appropriate - Mood Mood: Euthymic - Speech/Language Expressive: Coherent, Delayed - Psychomotor Activity Psychomotor Activity: Slowed - Thought Process Thought Process: Circumstantial - Thought Content Hallucinations: Absent Delusions: Absent - Self Perception Self Perception: Depersonalization - Cognition Attention: Diminished Memory, Short Term: 0/3 Memory, Remote with Promptin/3 - Concentration Serial Sevens Intact: No Simple Calculations Intact: No - Abstraction Proverb Interpretation: [place] Judgement: Moderately Impaired - Insight Insight: Intact - Impulse Control Impulse Control: Good Control - Suicidal Ideation Suicidal Ideation: No - Homicidal Ideation Homicidal Ideation: No Assessment/Plan 1) Please do not start any Psych MEds. there is no need for them at this point. 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
[2018-07-24] MEDS ORDERED: PIPERACILLIN/TAZOBACTAM 2.25 GM VIAL IVPB ONE ×2 (01:29→08:13)
[2018-07-24] MEDS ORDERED: DEXTROSE 5%-WATER - 50 ML IVPB ONE ×2 (01:29→08:14)
[2018-07-24] MEDS: DEXTROSE 5%-WATER - 1,000 ML IV SCH (02:58)
[2018-07-24] MEDS: PIPERACILLIN/TAZOB 2.25 GM 2.25 GM in DEXTROSE 5%-WATER - 50 ML IVPB SCH ×2 (02:58→08:33)
[2018-07-24] MEDS: HEPARIN NA (PORCINE) 5,000 UNITS/ML 1ML VIAL SQ SCH ×3 (06:08→21:22)
[2018-07-24] MEDS: LEVOTHYROXINE NA 50 MCG TABLET (FP) PO SCH (06:09)
--- NOTE | 2018-07-24 07:13 | PN.GI ---
GI Progress Note Subjective: no change in status ; no fever / abd pain / n/v - Objective Vital Signs: Vital Signs Temperature 98.0 F 07/24/18 05:00 Pulse Rate 81 07/24/18 05:00 Respiratory Rate 20 07/24/18 05:00 Blood Pressure 149/76 07/24/18 05:00 O2 Sat by Pulse Oximetry (%) 96 07/23/18 21:00 Constitutional: Well Nourished, No Distress, Calm Eyes: Yes: WNL HENT: Yes: WNL Neck: Yes: WNL Cardiovascular: Yes: WNL Respiratory: Yes: WNL Gastrointestinal Inspection: Yes: WNL ...Auscultate: Yes: Normoactive Bowel Sounds Extremities: Yes: WNL Edema: No Labs: CBC, BMP 07/23/18 09:02 07/23/18 09:02 INR, PTT INR 1.37 (0.83-1.09) H 07/21/18 16:21 Problem List - Problems (1) Abnormal LFTs Assessment/Plan: ultrasound without sign of an obstructive process f/u serology and isoenzymes repeat in one week as outpt avoid hepatotoxic medications off abx as per ID ? proctitis Code(s): R94.5 - ABNORMAL RESULTS OF LIVER FUNCTION STUDIES (2) UTI (urinary tract infection) Code(s): N39.0 - URINARY TRACT INFECTION, SITE NOT SPECIFIED
[2018-07-24 08:34] LABS: HEMATOCRIT 30.9 % (32.4-45.2); HEMOGLOBIN 10.1 GM/dL (10.7-15.3); MCH 28.5 pg (25.7-33.7); MCHC 32.6 g/dl (32.0-36.0); MEAN CELL VOLUME 87.2 fl (80-96); PLATELET COUNT 87 K/MM3 (134-434); RBC 3.54 M/mm3 (3.60-5.2); RDW 15.3 % (11.6-15.6)
[2018-07-24 09:09] LABS: ALBUMIN 1.6 g/dl (3.4-5.0); ALK PHOS 769 U/L (45-117); ANION GAP 8 MMOL/L (8-16); BILIRUBIN,TOTAL 0.6 mg/dL (0.2-1); BLOOD UREA NITROGEN 18 mg/dL (7-18); CALCIUM 9.9 mg/dL (8.5-10.1); CHLORIDE 108 mmol/L (98-107); CO2 27 mmol/L (21-32); CREATININE 1.1 mg/dL (0.55-1.3); GLUCOSE,RANDOM 177 mg/dL (74-106); PHOSPHOROUS 2.5 mg/dL (2.5-4.9); POTASSIUM 3.4 mmol/L (3.5-5.1); SGOT/AST 125 U/L (15-37); SGPT/ALT 51 U/L (13-61); SODIUM 143 mmol/L (136-145); TOT PROT 5.6 g/dl (6.4-8.2)
[2018-07-24] MEDS ORDERED: PT OWN MED DRAWER 7, Y5N ONE (09:17)
[2018-07-24] MEDS: amLODIPine BESYLATE 5 MG TABLET (FP) PO SCH (09:28)
[2018-07-24] MEDS: ASPIRIN 81 MG CHEWABLE TABLETS PO SCH (09:28)
[2018-07-24] MEDS: VALSARTAN 80 MG TABLET (UD) PO SCH (09:28)
--- NOTE | 2018-07-24 13:01 | PN ---
Progress Note (short form) - Note Progress Note: resting comfortable Current Medications Generic Name Dose Route Start Last Admin Trade Name Kaitlynn PRN Reason Stop Dose Admin Amlodipine Besylate 5 mg 07/24/18 10:00 07/24/18 09:28 Norvasc - PO 5 mg DAILY [facility] Administration Aspirin 81 mg 07/24/18 10:00 07/24/18 09:28 Asa - PO 81 mg DAILY [facility] Administration Heparin Sodium (Porcine) 5,000 unit 07/22/18 06:00 07/24/18 06:08 Heparin - SQ 5,000 unit TID [facility] Administration Piperacillin Sod/Tazobactam 50 mls @ 100 mls/hr 07/22/18 15:00 07/24/18 08:33 Sod 2.25 gm/ Dextrose IVPB 100 mls/hr Q6H-IV [facility] Administration Protocol Dextrose 1,000 mls @ 100 mls/hr 07/22/18 15:40 07/24/18 02:58 D5w - IV 100 mls/hr ASDIR [facility] Administration Levothyroxine Sodium 50 mcg 07/24/18 07:00 07/24/18 06:09 Synthroid - PO 50 mcg DAILY@0700 [facility] Administration Valsartan 80 mg 07/24/18 10:00 07/24/18 09:28 Diovan - PO 80 mg DAILY [facility] Administration Last Vital Signs Temp Pulse Resp BP Pulse Ox 99 F 88 20 162/90 96 07/24/18 09:59 07/24/18 09:59 07/24/18 09:59 07/24/18 09:59 07/23/18 21:00 General NAD, alert, does not respond to questions, follow some simple commands CV S1 S2 RRR no murmur/rub/gallop Lungs CTA B/L no wheezing/rales/rhonchi Abdomen soft NT/ND Extremities no pedal edema CBCD WBC 9.0 K/mm3 (4.0-10.0) 07/24/18 07:00 RBC 3.54 M/mm3 (3.60-5.2) L 07/24/18 07:00 Hgb 10.1 GM/dL (10.7-15.3) L 07/24/18 07:00 Hct 30.9 % (32.4-45.2) L 07/24/18 07:00 MCV 87.2 fl (80-96) 07/24/18 07:00 MCHC 32.6 g/dl (32.0-36.0) 07/24/18 07:00 RDW 15.3 % (11.6-15.6) 07/24/18 07:00 Plt Count 87 K/MM3 (134-434) L D 07/24/18 07:00 MPV 11.0 fl (7.5-11.1) 07/24/18 07:00 CMP Sodium 143 mmol/L (136-145) 07/24/18 07:00 Potassium 3.4 mmol/L (3.5-5.1) L 07/24/18 07:00 Chloride 108 mmol/L (98-107) H 07/24/18 07:00 Carbon Dioxide 27 mmol/L (21-32) 07/24/18 07:00 Anion Gap 8 MMOL/L (8-16) 07/24/18 07:00 BUN 18 mg/dL (7-18) 07/24/18 07:00 Creatinine 1.1 mg/dL (0.55-1.3) 07/24/18 07:00 Creat Clearance w eGFR 47.32 (>60) 07/24/18 07:00 Calcium 9.9 mg/dL (8.5-10.1) 07/24/18 07:00 Total Bilirubin 0.6 mg/dL (0.2-1) 07/24/18 07:00 AST 125 U/L (15-37) H 07/24/18 07:00 ALT 51 U/L (13-61) 07/24/18 07:00 Alkaline Phosphatase 769 U/L (45-117) H 07/24/18 07:00 Total Protein 5.6 g/dl (6.4-8.2) L 07/24/18 07:00 Albumin 1.6 g/dl (3.4-5.0) L 07/24/18 07:00 Microbiology 07/21/18 18:38 Urine Culture - Final Urine - Urine - Catheterized Escherichia Coli 07/21/18 15:08 Blood Culture - Preliminary Blood - Peripheral Venous NO GROWTH OBTAINED AFTER 48 HOURS, INCUBATION TO CONTINUE FOR 3 DAYS. 07/21/18 15:08 Blood Culture - Preliminary Blood - Peripheral Venous NO GROWTH OBTAINED AFTER 48 HOURS, INCUBATION TO CONTINUE FOR 3 DAYS. Assessment and plan: 82 year old female from [facility] with HTN, HLD, Hypothyroidism, Dementia, Schizophrenia, with decreased responsiveness, found to be febrile 100.9 on presentation with tachycardia, leukocytosis, hypernatremia, KATIE, elevated lactate. 1. Sepsis secondary to UTI +/- Proctitis - Asymptomatic. Ucx showing low colony count. spoke wiht ID. will d/c abx at this time 2. Acute Metabolic Encephalopathy sec to UTI +/- Hypercalcemia +/- Hypernatremia. multiple electrolyte disturbances has resolved. will d/c ivf. as per report from RN is most alert and interactive since arrival. will cont to monitor 3. RLE swelling - US Duplex negative for DVT 4. KATIE sec to volume depletion sec to Sepsis/UTI - resolved. No obstruction on abdominal/pelvis imaging. 5. Hypernatremia - sec to dehydration - improving with re-hydration. Nephrology consulted. 6. Hypercalcemia - etiology unclear - PTH normal. Repeat Calcium 10.2, normal when corrected for Albumin of 1.8. 7. Elevated Transaminases - etiology unclear, now improving. cont to trend down. can have repeated next week. hepatitis panel pending. Abdominal US negative. 8. HTN- above goal. re-start norvasc. titrate to optimize goal 9. hypothyroid- TSH WNL. cont LT4 10. DVT Px - Heparin SQ 11. medically optimized at this time for discharge. SNF unable to accept back today. plan to d/c tomorrow Visit type - Emergency Visit Emergency Visit: Yes ED Registration Date: 07/21/18 Care time: The patient presented to the Emergency Department on the above date and was hospitalized for further evaluation of their emergent condition. - New Patient This patient is new to me today: Yes Date on this admission: 07/24/18 - Critical Care Critical Care patient: No - Discharge Referral Referred to [facility] Med P.C.: No
[2018-07-24] MEDS ORDERED: POTASSIUM CHLORIDE ORAL LIQUID 20 MEQ/15 ML PO ONE (13:33)
--- NOTE | 2018-07-24 15:17 | PN ---
Progress Note (short form) - Note Progress Note: covering 1. KATIE 2. hypernatremia 3. hypercalcemia 4. UTI 5. dementia 6. schizophrenia 7. HTN 8. HLD Current Medications Amlodipine Besylate (Norvasc -) 5 mg PO DAILY [facility] Last Admin: 07/24/18 09:28 Dose: 5 mg Aspirin (Asa -) 81 mg PO DAILY [facility] Last Admin: 07/24/18 09:28 Dose: 81 mg Heparin Sodium (Porcine) (Heparin -) 5,000 unit SQ TID [facility] Last Admin: 07/24/18 06:08 Dose: 5,000 unit Levothyroxine Sodium (Synthroid -) 50 mcg PO DAILY@0700 [facility] Last Admin: 07/24/18 06:09 Dose: 50 mcg Valsartan (Diovan -) 80 mg PO DAILY [facility] Last Admin: 07/24/18 09:28 Dose: 80 mg Last Vital Signs Temp Pulse Resp BP Pulse Ox 99 F 88 20 162/90 96 07/24/18 09:59 07/24/18 09:59 07/24/18 09:59 07/24/18 09:59 07/23/18 21:00 awake oral mucosa dry neck no jvd Lungs clear Heart reg ext no edema CBC, BMP 07/24/18 07:00 07/24/18 07:00 CBC, BMP 07/23/18 09:02 07/23/18 09:02 IMP hypernatremia much improved azotemia improved Plan- continue hydration replace K
[2018-07-24] MEDS ORDERED: POTASSIUM CHLORIDE TABS 20 MEQ TABLET.ER (FP) PO ONE (19:23)
[2018-07-24] MEDS ORDERED: ACETAMINOPHEN 325 MG TABLET (FP) PO ONE (19:23)
[2018-07-25] MEDS: LEVOTHYROXINE NA 50 MCG TABLET (FP) PO SCH (06:21)
[2018-07-25 07:41] LABS: BASO % 0.6 % (0-2.0); EOS % 3.9 % (0-4.5); HEMOGLOBIN 10.8 GM/dL (10.7-15.3); LYMPH % 13.3 % (8-40); MCH 28.8 pg (25.7-33.7); MCHC 33.7 g/dl (32.0-36.0); MEAN CELL VOLUME 85.7 fl (80-96); MEAN PLT VOLUME 10.4 fl (7.5-11.1); MONO % 3.8 % (3.8-10.2); NEUT % 78.4 % (42.8-82.8); PLATELET COUNT 65 K/MM3 (134-434); RBC 3.73 M/mm3 (3.60-5.2); WHITE BLOOD COUNT 10.8 K/mm3 (4.0-10.0)
[2018-07-25 08:24] LABS: ALBUMIN 1.7 g/dl (3.4-5.0); ALK PHOS 794 U/L (45-117); ANION GAP 7 MMOL/L (8-16); BILIRUBIN,TOTAL 0.5 mg/dL (0.2-1); BLOOD UREA NITROGEN 15 mg/dL (7-18); CALCIUM 10.5 mg/dL (8.5-10.1); CHLORIDE 109 mmol/L (98-107); CO2 25 mmol/L (21-32); CREATININE 0.7 mg/dL (0.55-1.3); GLUCOSE,RANDOM 101 mg/dL (74-106); POTASSIUM 3.5 mmol/L (3.5-5.1); SGOT/AST 132 U/L (15-37); SGPT/ALT 51 U/L (13-61); SODIUM 141 mmol/L (136-145); TOT PROT 5.9 g/dl (6.4-8.2)
[2018-07-25] MEDS: VALSARTAN 80 MG TABLET (UD) PO SCH (10:49)
[2018-07-25] MEDS: amLODIPine BESYLATE 5 MG TABLET (FP) PO SCH (10:49)
[2018-07-25] MEDS: ASPIRIN 81 MG CHEWABLE TABLETS PO SCH (10:49)
--- NOTE | 2018-07-25 11:35 | PN ---
Progress Note, [employer] - Note Progress Note: Selected Entries 07/23/18 07/23/18 07/23/18 09:48 14:38 18:51 Breakfast 25% Lunch 25% Supper 25% Temperature 07/24/18 07/24/18 07/24/18 05:00 09:16 09:59 Breakfast 25% Lunch Supper Temperature 98.0 F 99 F 07/24/18 07/24/18 07/24/18 14:46 18:34 22:09 Breakfast Lunch 25% Supper Temperature 98.2 F 100.8 F H 99.2 F 07/25/18 07/25/18 07/25/18 02:00 06:00 10:00 Breakfast Lunch Supper Temperature 98.6 F 98.1 F 98.1 F Laboratory Tests 07/23/18 07/24/18 07/25/18 09:02 07:00 05:30 WBC 10.2 H 9.0 10.8 H On puree/nectar. PO holding results in limited PO intake. Consider appetite stimulant. Review pt's end of life wishes regarding consideration for TF.Pt is a full code.
[2018-07-25 12:29] LABS: ANISOCYTOSIS 0; MACROCYTOSIS 0; PLATELET ESTIMATE DECREASED
--- NOTE | 2018-07-25 13:57 | PN ---
Physical Exam: SUBJECTIVE: Patient seen and examined. Per nurse Pt. had a mucoid stool in the AM w/ streaks of blood. Pt. spiked temperature to 100.8 overnight. OBJECTIVE: Vital Signs Period Temp Pulse Resp BP Sys/Shankar Pulse Ox Last 24 Hr 98.1 F-100.8 F 88-99 18-20 129-155/72-93 98-98 GENERAL: The patient is awake, alert, and fully oriented, in no acute distress. HEAD: Normal with no signs of trauma. EYES: Sclera anicteric, conjunctiva clear. No ptosis. ENT: Ears normal, nares patent, oropharynx clear without exudates, moist mucous membranes. LUNGS: Breath sounds equal, clear to auscultation bilaterally, no wheezes, no crackles, no accessory muscle use. HEART: Regular rate and rhythm, S1, S2 without murmur, rub or gallop. ABDOMEN: Soft, nontender, nondistended, normoactive bowel sounds, no guarding, no rebound, On FINN: Pt. had inadequate rectal tone, no external or internal hemrroids noted, no viet flood on glove, however mucoid stool with scant streaks of blood noted. EXTREMITIES: 2+ radial pulses, warm, well-perfused, no edema. NEUROLOGICAL: Gait not observed. PSYCH: Normal mood, normal affect. SKIN: Warm, dry, normal turgor, pressure ulcers noted around perineum Laboratory Results - last 24 hr 07/25/18 07/25/18 05:30 06:30 WBC 10.8 H RBC 3.73 Hgb 10.8 Hct 32.0 L MCV 85.7 MCH 28.8 MCHC 33.7 RDW 15.0 Absolute Neuts (auto) 8.5 H Neutrophils % 78.4 Neutrophils % (Manual) 78.2 Band Neutrophils % 0.0 Lymphocytes % 13.3 Lymphocytes % (Manual) 13.0 Monocytes % 3.8 Monocytes % (Manual) 3 L Eosinophils % 3.9 D Eosinophils % (Manual) 1.1 D Basophils % 0.6 Basophils % (Manual) 1.1 D Myelocytes % (Man) 1 Promyelocytes % (Man) 0 Blast Cells % (Manual) 0 Nucleated RBC % 0 Metamyelocytes 2 D Hypochromia 0 Platelet Estimate Decreased Polychromasia 0 Poikilocytosis 0 Anisocytosis 0 Microcytosis 0 Macrocytosis 0 Sodium 141 Potassium 3.5 Chloride 109 H Carbon Dioxide 25 Anion Gap 7 L BUN 15 Creatinine 0.7 Creat Clearance w eGFR 79.72 Random Glucose 101 Calcium 10.5 H Total Bilirubin 0.5 AST 132 H ALT 51 Alkaline Phosphatase 794 H Total Protein 5.9 L Albumin 1.7 L Active Medications Home Medications Medication Instructions Recorded Acetaminophen [Tylenol -] 650 mg PO BID 07/21/18 Amlodipine Besylate 5 mg PO DAILY 07/21/18 Aspirin [ASA -] 81 mg PO DAILY 07/21/18 Cholecalciferol (Vitamin D3) 2,000 unit PO DAILY 07/21/18 [Vitamin D3 -] Docusate Sodium [Colace -] 200 mg PO HS 07/21/18 Levothyroxine Sodium [Levo-T] 50 mcg PO DAILY 07/21/18 Mirtazapine [Remeron -] 15 mg PO HS 07/21/18 Multivitamins [Tab-A-Vit -] 1 tab PO DAILY 07/21/18 Polyethylene Glycol 3350 [Miralax 17 gm PO DAILY 07/21/18 (For Daily Use) -] Risperidone [Risperdal] 0.25 mg PO DAILY 07/21/18 Valsartan [Diovan] 80 mg PO DAILY 07/21/18 Current Medications Amlodipine Besylate (Norvasc -) 5 mg PO DAILY [facility] Last Admin: 07/25/18 10:49 Dose: 5 mg Aspirin (Asa -) 81 mg PO DAILY [facility] Last Admin: 07/25/18 10:49 Dose: 81 mg Heparin Sodium (Porcine) (Heparin -) 5,000 unit SQ TID [facility] Last Admin: 07/24/18 21:22 Dose: 5,000 unit Levothyroxine Sodium (Synthroid -) 50 mcg PO DAILY@0700 [facility] Last Admin: 07/25/18 06:21 Dose: 50 mcg Valsartan (Diovan -) 80 mg PO DAILY [facility] Last Admin: 07/25/18 10:49 Dose: 80 mg ASSESSMENT/PLAN: Pt. is an 82 y.o. F w/ PMHx. of HTN, HLD, Hypothyroidism, dementia, and schizophrenia presenting from [facility], with AMS, fever and hypotension. #Acute metabolic Encephalopathy 2/2 sepsis 2/2 UTI Hypotension corrected w/ NS bolus UCx. growing E.Coli resistant to Levaquin BCx. Negative after 72hours Cr. : 0.7--> KATIE resolved c/w Zosyn 2.25 Q8H; ID Consult (Dr. Dumont) appreciated Speech and swallow appreciated-dysphagia puree, magic cup, liquids w/ Tspoon, meds crushed in applesauce #Hypernatremia-resolved Likely secondary to UTI and dehydration Gave @ 100 for 6 hours and then f/u BMP at 9pm BMP Q6H Nephrology consult (Dr. Fermin) appreciated #Hypercalcemmia- resolving PTH: 20 (normal) Ca2+ corrected: 12.5-->11.7-->12.0 baseline? Nephrology recommendations IVF, NS @ 83cc/hr Pt. takes Vitamin D supplements at home, may be a contributing factor therefore will advise to discuss as outpatient with PCP #Transaminitis Elevated LFTs as compared to CMP done 2 weeks ago where they were elevated as well GGT elevated, f/u Abd. US f/u ALP isoenzymes #DVT Ppx. D/c Heaparin as Pt. has dropped Platelets from 142k---> 65k over the last 3 days , will d/c even though Pt. did not have 50% drop in 24 hours nor has the Pt. been inpatient long enough start making Abs. (5-7 days) however as a precaution will start TEDs and SCDs. #Code Full code ([facility] [phone], in process of making advance directives , will f/u) Visit type - Emergency Visit Emergency Visit: Yes ED Registration Date: 07/21/18 Care time: The patient presented to the Emergency Department on the above date and was hospitalized for further evaluation of their emergent condition. - New Patient This patient is new to me today: No - Critical Care Critical Care patient: No - Discharge Referral Referred to [facility] Med P.C.: No
--- NOTE | 2018-07-25 14:06 | PN ---
Teaching Attending Note Name of Resident: Bhavin Andrew ATTENDING PHYSICIAN STATEMENT I saw and evaluated the patient. I reviewed the resident's note and discussed the case with the resident. I agree with the resident's findings and plan as documented. SUBJECTIVE:asymptomatic. does not answer questions OBJECTIVE: Last Vital Signs Temp Pulse Resp BP Pulse Ox 98.1 F 99 H 18 155/84 98 07/25/18 10:00 07/25/18 10:00 07/25/18 10:00 07/25/18 10:00 07/25/18 09:00 General NAD CV S1 S2 RRR no murmur/rub/gallop Lungs CTA B/L no wheezing/rales/rhonchi abdomen soft NT/ND ASSESSMENT AND PLAN: 82 year old female from [facility] with HTN, HLD, Hypothyroidism, Dementia, Schizophrenia, with decreased responsiveness, found to be febrile 100.9 on presentation with tachycardia, leukocytosis, hypernatremia, KATIE, elevated lactate. 1. Sepsis secondary to UTI +/- Proctitis - Tm 100.8 with mild uptrend in leukocytosis. cx were not sent. will monitor for now if has another fever or leukocytes trend up will re-culture. cont to monitor off abx. 2. Acute Metabolic Encephalopathy sec to UTI +/- Hypercalcemia +/- Hypernatremia. is more alert however not at baseline. will cont to monitor. will re-start low dose IVF with poor po 3. RLE swelling - US Duplex negative for DVT 4. KATIE sec to volume depletion sec to Sepsis/UTI - resolved. No obstruction on abdominal/pelvis imaging. 5. Hypernatremia - sec to dehydration - improving with re-hydration. Nephrology consulted. 6. Hypercalcemia - etiology unclear - trending back up possibly due to dehydration. PTH/TSH normal. unable to obtain PTHrp or vit D levels. should have these done as outpatient. could possible be due to Vit D toxicity as on as outpatient however can not check levels.would hold vit D on discharge. can continue further workup as outpatient for alternative causes 7. Elevated Transaminases - etiology unclear, now improving. cont to trend down. can have repeated next week. hepatitis panel pending. Abdominal US negative. 8. HTN- improved. cont norvasc 9. hypothyroid- TSH WNL. cont LT4 10. DVT Px - Heparin SQ 11. PT eval. spoke with daughter present at bedside. all questions answered. anticipate discharge in next 24H if remains afebrile and Ca trends down
[2018-07-25] MEDS ORDERED: SODIUM CHLORIDE 1,000 ML IV SCH (14:15)
--- NOTE | 2018-07-25 16:04 | PN ---
Progress Note, Physician History of Present Illness: Pt seen and examined at bedside. She is lethargic. She is not eating and not tolerating PO intake. She keeps food in her mouth and does not swallow. - Current Medication List Current Medications: Active Medications Amlodipine Besylate (Norvasc -) 5 mg PO DAILY [facility] Last Admin: 07/25/18 10:49 Dose: 5 mg Aspirin (Asa -) 81 mg PO DAILY [facility] Last Admin: 07/25/18 10:49 Dose: 81 mg Sodium Chloride (Normal Saline -) 1,000 mls @ 83 mls/hr IV ASDIR [facility] Stop: 07/26/18 02:18 Levothyroxine Sodium (Synthroid -) 50 mcg PO DAILY@0700 [facility] Last Admin: 07/25/18 06:21 Dose: 50 mcg Valsartan (Diovan -) 80 mg PO DAILY [facility] Last Admin: 07/25/18 10:49 Dose: 80 mg - Objective Vital Signs: Vital Signs Temperature 100.1 F H 07/25/18 14:59 Pulse Rate 90 07/25/18 14:59 Respiratory Rate 18 07/25/18 14:59 Blood Pressure 125/67 07/25/18 14:59 O2 Sat by Pulse Oximetry (%) 98 07/25/18 09:00 Constitutional: Yes: Calm Eyes: Yes: Conjunctiva Clear HENT: Yes: Atraumatic Cardiovascular: Yes: S1, S2 Respiratory: Yes: CTA Bilaterally Gastrointestinal: Yes: Soft Genitourinary: Yes: Incontinence Musculoskeletal: Yes: Muscle Weakness Neurological: Yes: Lethargy Labs: CBC, BMP 07/25/18 05:30 07/25/18 06:30 INR, PTT INR 1.37 (0.83-1.09) H 07/21/18 16:21 Problem List - Problems (1) Hypernatremia Code(s): E87.0 - HYPEROSMOLALITY AND HYPERNATREMIA (2) Hypercalcemia Code(s): E83.52 - HYPERCALCEMIA (3) Sepsis Code(s): A41.9 - SEPSIS, UNSPECIFIED ORGANISM Qualifiers: Sepsis type: sepsis due to unspecified organism Qualified Code(s): A41.9 - Sepsis, unspecified organism (4) UTI (urinary tract infection) Code(s): N39.0 - URINARY TRACT INFECTION, SITE NOT SPECIFIED Assessment/Plan Current Medications Generic Name Dose Route Start Last Admin Trade Name Kaitlynn PRN Reason Stop Dose Admin Amlodipine Besylate 5 mg 07/24/18 10:00 07/25/18 10:49 Norvasc - PO 5 mg DAILY DANTE Administration Aspirin 81 mg 07/24/18 10:00 07/25/18 10:49 Asa - PO 81 mg DAILY DANTE Administration Sodium Chloride 1,000 mls @ 83 mls/hr 07/25/18 14:15 Normal Saline - IV 07/26/18 02:18 ASDIR DANTE Levothyroxine Sodium 50 mcg 07/24/18 07:00 07/25/18 06:21 Synthroid - PO 50 mcg DAILY@0700 DANTE Administration Valsartan 80 mg 07/24/18 10:00 07/25/18 10:49 Diovan - PO 80 mg DAILY DANTE Administration Impression 1. KATIE 2. hypernatremia 3. hypercalcemia 4. UTI 5. dementia 6. schizophrenia 7. HTN 8. HLD Plan - sodium is improved - pt remain hypercalcemic - pth is low - she has elevated alk phos - check spep - oncology eval - monitor calcium - follow cultures - abx per primary team
--- NOTE | 2018-07-25 19:31 | PN.GI ---
GI Progress Note Subjective: Pt seen/examined at bedside, lethargic responds minimally to verbal stimuli. Pts daughter at bedside, states pt is less alert than yesterday. Not able to eat much. Denies abdominal pain, n/v or diarrhea. - Objective Vital Signs: Vital Signs Temperature 99.0 F 07/25/18 18:00 Pulse Rate 90 07/25/18 18:00 Respiratory Rate 18 07/25/18 18:00 Blood Pressure 132/65 07/25/18 18:00 O2 Sat by Pulse Oximetry (%) 98 07/25/18 09:00 Constitutional: No Distress, Other (lethargic) Cardiovascular: Yes: WNL, Regular Rate and Rhythm Respiratory: Yes: WNL, Regular, CTA Bilaterally Gastrointestinal Inspection: Yes: WNL ...Auscultate: Yes: Other (abd soft, nt, nd) Labs: CBC, BMP 07/25/18 05:30 07/25/18 06:30 INR, PTT INR 1.37 (0.83-1.09) H 07/21/18 16:21 Problem List - Problems (1) Abnormal LFTs Assessment/Plan: 82yo female presents with altered mental status being treated for urosepsis (e coli) asked to evaluate for elevated LFTs and with evidence of rectal thickening on CT imaging. Ultrasound without obvious obstructive process. LFTs have improved though appear to have plateaued. -Follow up hepatitis serologies and alk phos isoenzymes -Continue to avoid hepatotoxic medications -Continue to monitor LFT trend Code(s): R94.5 - ABNORMAL RESULTS OF LIVER FUNCTION STUDIES (2) Proctitis Assessment/Plan: Rectal thickening seen on CT imaging. No prior colonoscopy. -Stool studies for C difficile, ova/parasites if loose stool -Considering pts age/comorbidities risks/benefits of endoscopy will need to be weighed. Pts daughter prefers to avoid at this time. Code(s): K62.89 - OTHER SPECIFIED DISEASES OF ANUS AND RECTUM
[2018-07-26] MEDS: LEVOTHYROXINE NA 50 MCG TABLET (FP) PO SCH (06:28)
[2018-07-26 07:37] LABS: HEMATOCRIT 29.9 % (32.4-45.2); HEMOGLOBIN 9.6 GM/dL (10.7-15.3); MCH 27.5 pg (25.7-33.7); MCHC 32.1 g/dl (32.0-36.0); MEAN CELL VOLUME 85.7 fl (80-96); MEAN PLT VOLUME 10.4 fl (7.5-11.1); PLATELET COUNT 76 K/MM3 (134-434); RBC 3.49 M/mm3 (3.60-5.2); WHITE BLOOD COUNT 7.5 K/mm3 (4.0-10.0)
[2018-07-26 07:39] LABS: ANION GAP 8 MMOL/L (8-16); BLOOD UREA NITROGEN 13 mg/dL (7-18); CALCIUM 9.3 mg/dL (8.5-10.1); CHLORIDE 108 mmol/L (98-107); CO2 28 mmol/L (21-32); CREATININE 0.7 mg/dL (0.55-1.3); GLUCOSE,RANDOM 86 mg/dL (74-106); PHOSPHOROUS 2.7 mg/dL (2.5-4.9); SODIUM 143 mmol/L (136-145)
[2018-07-26] MEDS ORDERED: risperiDONE 0.25 MG TABLET (FP) PO SCH (10:00)
[2018-07-26] MEDS ORDERED: CHOLECALCIFEROL (VITAMIN D3) 1,000 UNIT TABLET (FP) PO SCH (10:00)
--- NOTE | 2018-07-26 10:21 | PN ---
Progress Note, RESEARCH AND INSIGHTS EXECUTIVE - Note Progress Note: Selected Entries 07/23/18 07/23/18 07/23/18 09:48 14:38 18:51 Breakfast 25% Lunch 25% Supper 25% Temperature 07/24/18 07/24/18 07/24/18 05:00 09:16 09:59 Breakfast 25% Lunch Supper Temperature 98.0 F 99 F 07/24/18 07/24/18 07/24/18 14:46 18:34 22:09 Breakfast Lunch 25% Supper Temperature 98.2 F 100.8 F H 99.2 F 07/25/18 07/25/18 07/25/18 02:00 06:00 10:00 Breakfast Lunch Supper Temperature 98.6 F 98.1 F 98.1 F Laboratory Tests 07/23/18 07/24/18 07/25/18 09:02 07:00 05:30 WBC 10.2 H 9.0 10.8 H Selected Entries 07/25/18 07/25/18 07/25/18 02:00 06:00 10:00 Lunch Supper Temperature 98.6 F 98.1 F 98.1 F 07/25/18 07/25/18 07/25/18 14:57 14:59 18:00 Lunch 25% Supper Temperature 100.1 F H 99.0 F 07/25/18 07/26/18 07/26/18 18:20 00:00 02:00 Lunch Supper 0 Temperature 98.8 F 97.9 F 07/26/18 06:00 Lunch Supper Temperature 98.0 F Laboratory Tests 07/26/18 06:30 WBC 7.5 On puree/nectar. PO holding results in limited PO intake. Taking a little of everything this am, for atotal of 25%. Consider appetite stimulant. Review pt's end of life wishes regarding consideration for TF.Pt is a full code.
[2018-07-26] MEDS ORDERED: POTASSIUM CHLORIDE TABS 20 MEQ TABLET.ER (FP) PO ONE (11:33)
[2018-07-26] MEDS: MULTIVITAMINS (DAILY MVI) TABLET (FP) PO SCH (11:54)
[2018-07-26] MEDS: ACETAMINOPHEN 325 MG TABLET (FP) PO SCH ×2 (11:54→22:08)
[2018-07-26] MEDS: amLODIPine BESYLATE 5 MG TABLET (FP) PO SCH (11:56)
[2018-07-26] MEDS: VALSARTAN 80 MG TABLET (UD) PO SCH (11:57)
[2018-07-26] MEDS: ASPIRIN 81 MG CHEWABLE TABLETS PO SCH (11:57)
[2018-07-26] MEDS ORDERED: PT OWN MED DRAWER 7, Y5N ONE (11:58)
[2018-07-26] MEDS: KCL 10 MEQ IVPB 10 MEQ/100 ML INFUS.BAG IVPB SCH (15:00)
--- NOTE | 2018-07-26 15:43 | PN ---
Physical Exam: SUBJECTIVE: Patient seen and examined. Wrist band noted to be too tight causing hand swelling, discussed with covering nurse to loosen and re-apply. OBJECTIVE: Vital Signs Period Temp Pulse Resp BP Sys/Shankar Pulse Ox Last 24 Hr 97.9 F-99.0 F 89-97 17-18 131-153/64-80 98 GENERAL: The patient is awake, alert, and more responsive than yesterday, in no acute distress. HEAD: Normal with no signs of trauma. EYES: Sclera anicteric, conjunctiva clear. No ptosis. ENT: Ears normal, nares patent, oropharynx clear without exudates, moist mucous membranes. LUNGS: Breath sounds equal, clear to auscultation bilaterally, no wheezes, no crackles, no accessory muscle use. HEART: Regular rate and rhythm, S1, S2 without murmur, rub or gallop. ABDOMEN: Soft, nontender, nondistended, normoactive bowel sounds, no guarding, no rebound EXTREMITIES: 2+ radial pulses, warm, well-perfused, no edema. NEUROLOGICAL: Gait not observed. PSYCH: Normal mood, normal affect. SKIN: Warm, dry Laboratory Results - last 24 hr 07/22/18 07/26/18 07/26/18 06:30 06:30 06:30 WBC 7.5 RBC 3.49 L Hgb 9.6 L Hct 29.9 L MCV 85.7 MCH 27.5 MCHC 32.1 RDW 15.0 Plt Count 76 L MPV 10.4 Sodium 143 Potassium 3.0 L Chloride 108 H Carbon Dioxide 28 Anion Gap 8 BUN 13 Creatinine 0.7 Creat Clearance w eGFR 79.72 Random Glucose 86 Calcium 9.3 Phosphorus 2.7 Magnesium 2.0 HCV Quantitation Hcv not detected HCV RNA log copies/mL TNP Active Medications Home Medications Medication Instructions Recorded Acetaminophen [Tylenol .Regular 650 mg PO BID 07/21/18 Strength -] Amlodipine Besylate 5 mg PO DAILY 07/21/18 Aspirin [ASA -] 81 mg PO DAILY 07/21/18 Cholecalciferol (Vitamin D3) 2,000 unit PO DAILY 07/21/18 [Vitamin D3 -] Docusate Sodium [Colace -] 200 mg PO HS 07/21/18 Levothyroxine Sodium [Levo-T] 50 mcg PO DAILY 07/21/18 Mirtazapine [Remeron -] 15 mg PO HS 07/21/18 Multivitamins [Multivit ([facility] 1 tab PO DAILY 07/21/18 Formulary)] Polyethylene Glycol 3350 [Miralax 17 gm PO DAILY 07/21/18 119 gm Btl -] Risperidone [Risperdal -] 0.25 mg PO DAILY 07/21/18 Valsartan [Diovan] 80 mg PO DAILY 07/21/18 Potassium Chloride [K-Dur -] 20 meq PO DAILY #5 tablet.er 07/26/18 Current Medications Acetaminophen (Tylenol -) 650 mg PO BID [facility] Last Admin: 07/26/18 11:54 Dose: 650 mg Amlodipine Besylate (Norvasc -) 10 mg PO DAILY [facility] Last Admin: 07/26/18 11:56 Dose: 10 mg Aspirin (Asa -) 81 mg PO DAILY [facility] Last Admin: 07/26/18 11:57 Dose: 81 mg Cholecalciferol (Vitamin D3 -) 2,000 unit PO DAILY [facility] Last Admin: 07/26/18 11:56 Dose: 2,000 unit Docusate Sodium (Colace -) 200 mg PO HS [facility] Levothyroxine Sodium (Synthroid -) 50 mcg PO DAILY@0700 [facility] Last Admin: 07/26/18 06:28 Dose: 50 mcg Mirtazapine (Remeron -) 15 mg PO HS [facility] Multivitamins/Minerals/Vitamin C (Tab-A-Vit -) 1 tab PO DAILY [facility] Last Admin: 07/26/18 11:54 Dose: 1 tab Risperidone (Risperdal -) 0.25 mg PO DAILY [facility] Last Admin: 07/26/18 11:59 Dose: 0.25 mg Valsartan (Diovan -) 80 mg PO DAILY [facility] Last Admin: 07/26/18 11:57 Dose: 80 mg ASSESSMENT/PLAN: Pt. is an 82 y.o. F w/ PMHx. of HTN, HLD, Hypothyroidism, dementia, and schizophrenia presenting from [facility], with AMS, fever and hypotension. #Decreased appetite Pt. encouraged to increase PO intake( per Betty Ade intake has been ~25% of meals) restart Remeron, per [facility] (Dr. 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 Pt. walked 5 ft. w/ rehab yesterday and only was able to stand today, Pt. will need Subacute Rehab. Will monitor overnight until location is finalized. #Acute metabolic Encephalopathy 2/2 sepsis 2/2 UTI Hypotension corrected w/ NS bolus UCx. growing E.Coli resistant to Levaquin BCx. Negative after 72hours Cr. : 0.7--> KATIE resolved c/w Zosyn 2.25 Q8H; ID Consult (Dr. Dumont) appreciated Speech and swallow appreciated-dysphagia puree, magic cup, liquids w/ Tspoon, meds crushed in applesauce #Hypernatremia-resolved Likely secondary to UTI and dehydration Gave @ 100 for 6 hours and then f/u BMP at 9pm BMP Q6H Nephrology consult (Dr. Fermin) appreciated #Hypercalcemmia- resolving PTH: 20 (normal) Ca2+ corrected: 12.5-->11.7-->12.0 baseline? Nephrology recommendations IVF, NS @ 83cc/hr Pt. takes Vitamin D supplements at home, may be a contributing factor therefore will advise to discuss as outpatient with PCP #Transaminitis-resolving Elevated LFTs as compared to CMP done 2 weeks ago where they were elevated as well GGT elevated, Abd. US: no acute pathology f/u ALP isoenzymes #DVT Ppx. D/c Heaparin as Pt. has dropped Platelets from 142k---> 65k over the last 3 days , will d/c even though Pt. did not have 50% drop in 24 hours nor has the Pt. been inpatient long enough start making Abs. (5-7 days) however as a precaution will start TEDs and SCDs. #Code Full code (HCP- Ben Small [phone], in process of making advance directives , will f/u)
--- NOTE | 2018-07-26 16:18 | PN ---
Teaching Attending Note Name of Resident: Bhavin Andrew ATTENDING PHYSICIAN STATEMENT I saw and evaluated the patient. I reviewed the resident's note and discussed the case with the resident. I agree with the resident's findings and plan as documented. SUBJECTIVE:alert, answers some questions ate slightly above 25% of meals OBJECTIVE: Last Vital Signs Temp Pulse Resp BP Pulse Ox 99.0 F 97 H 18 141/65 98 07/26/18 15:02 07/26/18 15:02 07/26/18 15:02 07/26/18 15:02 07/25/18 21:00 General NAD CV S1 S2 RRR no murmur/rub/gallop Lungs CTA B/L no wheezing/rales/rhonchi abdomen soft NT/ND ASSESSMENT AND PLAN: 82 year old female from [facility] with HTN, HLD, Hypothyroidism, Dementia, Schizophrenia, with decreased responsiveness, found to be febrile 100.9 on presentation with tachycardia, leukocytosis, hypernatremia, KATIE, elevated lactate. 1. Sepsis secondary to UTI +/- Proctitis -afebrile. no leukocytosis. cont to monitor off abx. 2. Acute Metabolic Encephalopathy sec to UTI +/- Hypercalcemia +/- Hypernatremia. is more alert however not at baseline. spoke with children present at bedside. reports she is more verbal at baseline, is confused typically and does not answer appropriately but able to speak more. started on remeron. will ask psych to come and re-evaluate. 3. dysphagia- puree diet. tolerating less than 50% of her meals and concerned about consuming enough calories. swallow therapist evaluated. discussed with children about appetite stimulants which they are not interested. remeron was started which can also aid in appetite stimulation. discusses with children about next step PEG placement which they will discuss 3. RLE swelling - US Duplex negative for DVT 4. KATIE sec to volume depletion sec to Sepsis/UTI - resolved. No obstruction on abdominal/pelvis imaging. 5. Hypernatremia - sec to dehydration - improving with re-hydration. Nephrology consulted. 6. Hypercalcemia - etiology unclear - resolved. discussed with children about possiblility of malignancy as cause. they know she never had colonscoopy but unclear about other cancer screening tests. are not interested in pursuing at this time as not interested in treating. will d/w with PMD. hold vit D as outpatient as this can also potentiate hypercalcemia. can have levels checked as outpatient 7. Elevated Transaminases - etiology unclear, now improving. cont to trend down. can have repeated next week. hepatitis panel pending. Abdominal US negative. 8. HTN- above goal. increase norvasc 9. hypothyroid- TSH WNL. cont LT4 10. DVT Px - Heparin SQ 11. ambulated 5 ft with PT. will need MARVIN. will monitor another 24H for mental status and dietary improvement. re-eval by psych. spoke in detail with children about expectations and goals. will discuss tonight and come with goals of care.
--- NOTE | 2018-07-26 16:29 | PN ---
Progress Note, Physician History of Present Illness: Pt seen and examined at bedside. She is awake but is confused. - Current Medication List Current Medications: Active Medications Acetaminophen (Tylenol -) 650 mg PO BID [facility] Last Admin: 07/26/18 11:54 Dose: 650 mg Amlodipine Besylate (Norvasc -) 10 mg PO DAILY [facility] Last Admin: 07/26/18 11:56 Dose: 10 mg Aspirin (Asa -) 81 mg PO DAILY [facility] Last Admin: 07/26/18 11:57 Dose: 81 mg Cholecalciferol (Vitamin D3 -) 2,000 unit PO DAILY [facility] Last Admin: 07/26/18 11:56 Dose: 2,000 unit Docusate Sodium (Colace -) 200 mg PO HS [facility] Levothyroxine Sodium (Synthroid -) 50 mcg PO DAILY@0700 [facility] Last Admin: 07/26/18 06:28 Dose: 50 mcg Mirtazapine (Remeron -) 15 mg PO HS [facility] Multivitamins/Minerals/Vitamin C (Tab-A-Vit -) 1 tab PO DAILY [facility] Last Admin: 07/26/18 11:54 Dose: 1 tab Risperidone (Risperdal -) 0.25 mg PO DAILY [facility] Last Admin: 07/26/18 11:59 Dose: 0.25 mg Valsartan (Diovan -) 80 mg PO DAILY [facility] Last Admin: 07/26/18 11:57 Dose: 80 mg - Objective Vital Signs: Vital Signs Temperature 99.0 F 07/26/18 15:02 Pulse Rate 97 H 07/26/18 15:02 Respiratory Rate 18 07/26/18 15:02 Blood Pressure 141/65 07/26/18 15:02 O2 Sat by Pulse Oximetry (%) 98 07/25/18 21:00 Constitutional: Yes: Calm Eyes: Yes: Conjunctiva Clear HENT: Yes: Atraumatic Neck: Yes: Supple Cardiovascular: Yes: S1, S2 Respiratory: Yes: CTA Bilaterally Gastrointestinal: Yes: Soft Genitourinary: Yes: Incontinence Musculoskeletal: Yes: Muscle Weakness Edema: No Neurological: Yes: Confusion Labs: CBC, BMP 07/26/18 06:30 07/26/18 06:30 INR, PTT INR 1.37 (0.83-1.09) H 07/21/18 16:21 Problem List - Problems (1) Hypernatremia Code(s): E87.0 - HYPEROSMOLALITY AND HYPERNATREMIA (2) Hypercalcemia Code(s): E83.52 - HYPERCALCEMIA (3) Sepsis Code(s): A41.9 - SEPSIS, UNSPECIFIED ORGANISM Qualifiers: Sepsis type: sepsis due to unspecified organism Qualified Code(s): A41.9 - Sepsis, unspecified organism (4) UTI (urinary tract infection) Code(s): N39.0 - URINARY TRACT INFECTION, SITE NOT SPECIFIED Assessment/Plan Current Medications Generic Name Dose Route Start Last Admin Trade Name Freq PRN Reason Stop Dose Admin Acetaminophen 650 mg 07/26/18 10:00 07/26/18 11:54 Tylenol - PO 650 mg BID DANTE Administration Amlodipine Besylate 10 mg 07/26/18 10:00 07/26/18 11:56 Norvasc - PO 10 mg DAILY DANTE Administration Aspirin 81 mg 07/24/18 10:00 07/26/18 11:57 Asa - PO 81 mg DAILY DANTE Administration Cholecalciferol 2,000 unit 07/26/18 10:00 07/26/18 11:56 Vitamin D3 - PO 2,000 unit DAILY DANTE Administration Docusate Sodium 200 mg 07/26/18 22:00 Colace - PO HS DANTE Levothyroxine Sodium 50 mcg 07/24/18 07:00 07/26/18 06:28 Synthroid - PO 50 mcg DAILY@0700 DANTE Administration Mirtazapine 15 mg 07/26/18 22:00 Remeron - PO HS [facility] Multivitamins/Minerals/Vitamin C 1 tab 07/26/18 10:00 07/26/18 11:54 Tab-A-Vit - PO 1 tab DAILY DANTE Administration Risperidone 0.25 mg 07/26/18 10:00 07/26/18 11:59 Risperdal - PO 0.25 mg DAILY DANTE Administration Valsartan 80 mg 07/24/18 10:00 07/26/18 11:57 Diovan - PO 80 mg DAILY DANTE Administration Laboratory Tests 07/22/18 07/25/18 07/25/18 06:30 06:30 16:45 Calcium 10.5 H Total Protein (PEP) Pending Albumin 1.7 L Albumin (PEP) Pending Globulin Pending Albumin/Globulin Ratio Pending Beta Globulins Pending PTH Intact 20 RUIZ M-Chandra Pending Free [place] LC, Quant Free Lambda LC, Quant Free [place]/Lambda Ratio 07/25/18 16:45 Calcium Total Protein (PEP) Albumin Albumin (PEP) Globulin Albumin/Globulin Ratio Beta Globulins PTH Intact RUIZ M-Chandra Free [place] LC, Quant Pending Free Lambda LC, Quant Pending Free [place]/Lambda Ratio Pending Impression 1. KATIE 2. hypernatremia 3. hypercalcemia 4. UTI 5. dementia 6. schizophrenia 7. HTN 8. HLD Plan - replace potassium - monitor lytes - calcium is improved, family do not want further workup - discussed with medical team - follow spep and light chains - oncology eval - monitor calcium - abx per primary team
--- NOTE | 2018-07-26 18:50 | PN.GI ---
GI Progress Note Subjective: No acute events No rectal bleeding Nurse states that she had blood and vaginal discharge - Objective Vital Signs: Vital Signs Temperature 98.2 F 07/26/18 18:18 Pulse Rate 90 07/26/18 18:18 Respiratory Rate 18 07/26/18 18:18 Blood Pressure 114/60 07/26/18 18:18 O2 Sat by Pulse Oximetry (%) 98 07/25/18 21:00 Constitutional: Calm Eyes: No: Sclera Icterus Cardiovascular: Yes: Regular Rate and Rhythm Respiratory: Yes: Diminished (At bases bilaterally.) Gastrointestinal Inspection: No: Distention ...Auscultate: Yes: Normoactive Bowel Sounds ...Palpate: Yes: Soft. No: Tenderness ...Rectal Exam: Yes: Other (No external lesions, no masses, light brown liquid stool) Edema: No (No LE edema) Labs: CBC, BMP 07/26/18 06:30 07/26/18 06:30 INR, PTT INR 1.37 (0.83-1.09) H 07/21/18 16:21 Problem List - Problems (1) Proctitis Assessment/Plan: No diarrhea reported and bloody vaginal discharge described by nurse today. I had met Ms. Copeland and her son, who was present at bedside currently, in my office. She had been referrred for guaiac Positive stool from [place] and her son had deeclined invasive testing at that time. Both he and his sister decline invasive testing for their mother at this time as well Evaluation of vaginal discharge per primary team Code(s): K62.89 - OTHER SPECIFIED DISEASES OF ANUS AND RECTUM
[2018-07-26] MEDS ORDERED: DOCUSATE SODIUM 100 MG CAPSULE (FP) PO SCH (22:00)
[2018-07-26] MEDS ORDERED: MIRTAZAPINE 15 MG TABLET (FP) PO SCH (22:00)
[2018-07-27] MEDS: LEVOTHYROXINE NA 50 MCG TABLET (FP) PO SCH (06:32)
[2018-07-27 07:24] LABS: ANION GAP 6 MMOL/L (8-16); BLOOD UREA NITROGEN 14 mg/dL (7-18); CALCIUM 9.7 mg/dL (8.5-10.1); CHLORIDE 110 mmol/L (98-107); CO2 28 mmol/L (21-32); CREATININE 0.9 mg/dL (0.55-1.3); GLUCOSE,RANDOM 114 mg/dL (74-106); MAGNESIUM 2.1 mg/dL (1.8-2.4); PHOSPHOROUS 2.8 mg/dL (2.5-4.9); POTASSIUM 3.5 mmol/L (3.5-5.1); SODIUM 145 mmol/L (136-145)
[2018-07-27] MEDS ORDERED: DOCUSATE NA 100 MG/10 ML UNIT-DOSE CUPS PO PRN (08:27)
[2018-07-27 09:02] LABS: ALBUMIN 1.8 g/dl (3.4-5.0); ALK PHOS 749 U/L (45-117); BILIRUBIN,DIRECT 0.2 mg/dL (0.0-0.2); BILIRUBIN,TOTAL 0.4 mg/dL (0.2-1); SGOT/AST 134 U/L (15-37); SGPT/ALT 50 U/L (13-61); TOT PROT 5.7 g/dl (6.4-8.2)
[2018-07-27] MEDS: ACETAMINOPHEN 325 MG TABLET (FP) PO SCH (10:22)
[2018-07-27] MEDS: amLODIPine BESYLATE 5 MG TABLET (FP) PO SCH (10:23)
[2018-07-27] MEDS: VALSARTAN 80 MG TABLET (UD) PO SCH (10:23)
[2018-07-27] MEDS: ASPIRIN 81 MG CHEWABLE TABLETS PO SCH (10:23)
[2018-07-27] MEDS: MULTIVITAMINS (DAILY MVI) TABLET (FP) PO SCH (10:23)
--- NOTE | 2018-07-27 12:05 | PN ---
Teaching Attending Note Name of Resident: Bhavin Andrew ATTENDING PHYSICIAN STATEMENT I saw and evaluated the patient. I reviewed the resident's note and discussed the case with the resident. I agree with the resident's findings and plan as documented. SUBJECTIVE:resting comfortable. states no when asked if having any CP and SOB OBJECTIVE: Last Vital Signs Temp Pulse Resp BP Pulse Ox 98.4 F 92 H 18 147/79 96 07/27/18 10:06 07/27/18 10:06 07/27/18 10:07/27/18 10:07/27/18 09:00 General NAD CV S1 S2 RRR no murmur/rub/gallop Lungs CTA B/L no wheezing/rales/rhonchi abdomen soft NT/ND ASSESSMENT AND PLAN: 82 year old female from [facility] with HTN, HLD, Hypothyroidism, Dementia, Schizophrenia, with decreased responsiveness, found to be febrile 100.9 on presentation with tachycardia, leukocytosis, hypernatremia, KATIE, elevated lactate. 1. Sepsis secondary to UTI +/- Proctitis -afebrile. no leukocytosis. cont to monitor off abx. 2. Acute Metabolic Encephalopathy sec to UTI +/- Hypercalcemia +/- Hypernatremia. is more alert however not at baseline. will ask chepuru if any adjustment to medications at this time. 3. dysphagia- puree diet. poor po intake. family not interested in appetite stimulants or PEG placement. started on remeron with hopes this will increase appetite. 3. RLE swelling - US Duplex negative for DVT 4. KATIE sec to volume depletion sec to Sepsis/UTI - resolved. No obstruction on abdominal/pelvis imaging. 5. Hypernatremia - sec to dehydration -resolved 6. Hypercalcemia - etiology unclear - resolved. discussed with children about possiblility of malignancy as cause. they know she never had colonscoopy but unclear about other cancer screening tests. are not interested in pursuing at this time as not interested in treating. will d/w with PMD. hold vit D as outpatient as this can also potentiate hypercalcemia. can have levels checked as outpatient 7. Elevated Transaminases - etiology unclear, now improving. cont to trend down. can have repeated next week. hepatitis panel pending. Abdominal US negative. 8. HTN- above goal. increase norvasc 9. hypothyroid- TSH WNL. cont LT4 10. DVT Px - Heparin SQ 11. d/c to [facility]. encourage po intake and water
--- NOTE | 2018-07-27 12:24 | PN ---
Progress Note, Physician History of Present Illness: Pt seen and examined at bedside. She is appears comfortable. - Current Medication List Current Medications: Active Medications Acetaminophen (Tylenol -) 650 mg PO BID [facility] Last Admin: 07/27/18 10:22 Dose: 650 mg Amlodipine Besylate (Norvasc -) 10 mg PO DAILY [facility] Last Admin: 07/27/18 10:23 Dose: 10 mg Aspirin (Asa -) 81 mg PO DAILY [facility] Last Admin: 07/27/18 10:23 Dose: 81 mg Docusate Sodium (Colace Liquid -) 200 mg PO DAILY PRN PRN Reason: CONSTIPATION Levothyroxine Sodium (Synthroid -) 50 mcg PO DAILY@0700 [facility] Last Admin: 07/27/18 06:32 Dose: 50 mcg Mirtazapine (Remeron -) 15 mg PO HS [facility] Last Admin: 07/26/18 22:08 Dose: 15 mg Multivitamins/Minerals/Vitamin C (Tab-A-Vit -) 1 tab PO DAILY [facility] Last Admin: 07/27/18 10:23 Dose: 1 tab Valsartan (Diovan -) 80 mg PO DAILY [facility] Last Admin: 07/27/18 10:23 Dose: 80 mg - Objective Vital Signs: Vital Signs Temperature 98.4 F 07/27/18 10:06 Pulse Rate 92 H 07/27/18 10:06 Respiratory Rate 18 07/27/18 10:06 Blood Pressure 147/79 07/27/18 10:06 O2 Sat by Pulse Oximetry (%) 96 07/27/18 09:00 Constitutional: Yes: Calm Eyes: Yes: Conjunctiva Clear HENT: Yes: Atraumatic Cardiovascular: Yes: S1, S2 Respiratory: Yes: CTA Bilaterally Gastrointestinal: Yes: Soft Genitourinary: Yes: Incontinence Musculoskeletal: Yes: Muscle Weakness Edema: No Neurological: Yes: Confusion Labs: CBC, BMP 07/26/18 06:30 07/27/18 06:00 INR, PTT INR 1.37 (0.83-1.09) H 07/21/18 16:21 Problem List - Problems (1) Hypernatremia Code(s): E87.0 - HYPEROSMOLALITY AND HYPERNATREMIA (2) Hypercalcemia Code(s): E83.52 - HYPERCALCEMIA (3) Sepsis Code(s): A41.9 - SEPSIS, UNSPECIFIED ORGANISM Qualifiers: Sepsis type: sepsis due to unspecified organism Qualified Code(s): A41.9 - Sepsis, unspecified organism (4) UTI (urinary tract infection) Code(s): N39.0 - URINARY TRACT INFECTION, SITE NOT SPECIFIED Assessment/Plan Current Medications Generic Name Dose Route Start Last Admin Trade Name Freq PRN Reason Stop Dose Admin Acetaminophen 650 mg 07/26/18 10:00 07/27/18 10:22 Tylenol - PO 650 mg BID DANTE Administration Amlodipine Besylate 10 mg 07/26/18 10:00 07/27/18 10:23 Norvasc - PO 10 mg DAILY DANTE Administration Aspirin 81 mg 07/24/18 10:00 07/27/18 10:23 Asa - PO 81 mg DAILY DANTE Administration Docusate Sodium 200 mg 07/27/18 08:27 Colace Liquid - PO DAILY PRN CONSTIPATION Levothyroxine Sodium 50 mcg 07/24/18 07:00 07/27/18 06:32 Synthroid - PO 50 mcg DAILY@0700 DANTE Administration Mirtazapine 15 mg 07/26/18 22:00 07/26/18 22:08 Remeron - PO 15 mg HS DANTE Administration Multivitamins/Minerals/Vitamin C 1 tab 07/26/18 10:00 07/27/18 10:23 Tab-A-Vit - PO 1 tab DAILY DANTE Administration Valsartan 80 mg 07/24/18 10:00 07/27/18 10:23 Diovan - PO 80 mg DAILY DANTE Administration Laboratory Tests 07/25/18 07/25/18 07/27/18 16:45 16:45 06:00 Alkaline Phosphatase 749 H Total Protein (PEP) Pending RUIZ M-Chandra Pending Free [place] LC, Quant Pending Free Lambda LC, Quant Pending Free [place]/Lambda Ratio Pending Impression 1. KATIE 2. hypernatremia 3. hypercalcemia 4. UTI 5. dementia 6. schizophrenia 7. HTN 8. HLD Plan - potassium improved - monitor calcium - follow spep and light chains - oncology eval - abx per primary team
--- NOTE | 2018-07-27 14:52 | DS ---
Physical Exam: SUBJECTIVE: Patient seen and examined OBJECTIVE: Vital Signs Period Temp Pulse Resp BP Sys/Shankar Pulse Ox Last 24 Hr 97.1 F-99.0 F 90-98 17-18 114-148/60-79 96-96 PHYSICAL EXAM GENERAL: The patient is awake, alert, and less responsive than yesterday, in no acute distress. HEAD: Normal with no signs of trauma. EYES: Sclera anicteric, conjunctiva clear. No ptosis. ENT: Ears normal, nares patent, oropharynx clear without exudates, moist mucous membranes. LUNGS: Breath sounds equal, clear to auscultation bilaterally, no wheezes, no crackles, no accessory muscle use. HEART: Regular rate and rhythm, S1, S2 without murmur, rub or gallop. ABDOMEN: Soft, nontender, nondistended, normoactive bowel sounds, no guarding, no rebound EXTREMITIES: 2+ radial pulses, warm, well-perfused, no edema. NEUROLOGICAL: Gait not observed. PSYCH: Normal mood, normal affect. SKIN: Warm, dry LABS Laboratory Results - last 24 hr 07/24/18 07/27/18 07:00 06:00 Sodium 145 Potassium 3.5 Chloride 110 H Carbon Dioxide 28 Anion Gap 6 L Hepatic Function Panel 7 L BUN 14 Creatinine 0.9 Creat Clearance w eGFR 59.65 Random Glucose 114 H Calcium 9.7 Phosphorus 2.8 Magnesium 2.1 Total Bilirubin 0.4 Direct Bilirubin 0.2 AST 134 H ALT 50 Alkaline Phosphatase 668 H 749 H Total Protein 5.7 L Albumin 1.8 L HOSPITAL COURSE: Date of Admission:07/21/18 Date of Discharge: 07/27/18 Discharge Summary Reason For Visit: SEPSIS Current Active Problems Abnormal LFTs (Acute) Hypercalcemia (Acute) Hypernatremia (Acute) Proctitis (Acute) Sepsis (Acute) UTI (urinary tract infection) (Acute) Condition: Improved - Instructions Diet, Activity, Other Instructions: You came in for increased confusion, fever and low blood pressure. We found that you had a high sodium and high calcium level We found that you had elevated lever enzymes We treated you with fluids and corrected the numbers We treated you with a short course of antibiotics We increased your Norvasc to 10mg ONCE a day We started you on Potassium 20meq ONCE a day for 5 days because we found that you had low potassium. Please recheck chemistry ([facility]) on Wednesday (08/01/18) We started you on a new medication to help your appetite Please take 2.1mg of Dronabinol TWICE a day, 1 hour before meals. Please monitor how much food you are taking in and follow up with your PCP. Please STOP taking Vitamin D supplements until you visit with your PCP. Please STOP taking Risperidone, as this may be contributing to your decreased responsiveness. Please resume all other medications as prescribed. Please follow up with your PCP, Dr. Garces within 1 week. Please discuss Vitamin D, calcium and potassium levels. Please return to the ED if you are having worsening abdominal pain, burning with urination, fever, chills, worsening confusion or any other concerning symptoms Referrals: Kirti Garces MD [Primary Care Provider] - 1 Week Disposition: [facility] - Home Medications Comprehensive Discharge Medication List: Ambulatory Orders Acetaminophen [Tylenol .Regular Strength -] 650 mg PO BID 07/21/18 Amlodipine Besylate 5 mg PO DAILY 07/21/18 Aspirin [ASA -] 81 mg PO DAILY 07/21/18 Docusate Sodium [Colace -] 200 mg PO HS 07/21/18 Levothyroxine Sodium [Levo-T] 50 mcg PO DAILY 07/21/18 Mirtazapine [Remeron -] 15 mg PO HS 07/21/18 Multivitamins [Multivit ([facility] Formul[facility])] 1 tab PO DAILY 07/21/18 Polyethylene Glycol 3350 [Miralax 119 gm Btl -] 17 gm PO DAILY 07/21/18 Valsartan [Diovan] 80 mg PO DAILY 07/21/18 Potassium Chloride [K-Dur -] 20 meq PO DAILY #5 tablet.er 07/26/18 Dronabinol [Syndros] 2.1 mg PO BID #60 solution MDD 4.2 07/27/18 - Discharge Referral Referred to [facility] No
[2018-07-27 18:13] LABS: HBSAG SCREEN Negative (Negative); HEP A AB, IGM Negative (Negative); HEP B CORE AB, TOT Positive (Negative)
[2018-07-27 18:50] VITALS: BP 142/69; PULSE 95; TEMP 97.3
[2018-07-27 19:08] LABS: FREE KAPPA,SERUM 46.6 mg/L (3.3-19.4)
[2018-07-27] MEDS ORDERED: risperiDONE 0.25 MG TABLET (FP) PO SCH (21:00)
== END 2018-07-27 19:20 | DRG 871 ==
LOC: JER 14:05 → JERBED 17:54 → J5S 07-22 02:10
PROVIDERS: ADMIT Internal Medicine; ATTEND Internal Medicine
DX: A41.9 Sepsis, unspecified organism (principal); J96.01 Acute respiratory failure with hypoxia; G93.41 Metabolic encephalopathy; N17.9 Acute kidney failure, unspecified; E87.0 Hyperosmolality and hypernatremia; N39.0 Urinary tract infection, site not specified; R32 Unspecified urinary incontinence; B96.29 Other Escherichia coli [E. coli] as the cause of diseases classified elsewhere; R13.11 Dysphagia, oral phase; E83.52 Hypercalcemia; E87.6 Hypokalemia; I95.9 Hypotension, unspecified; E88.09 Other disorders of plasma-protein metabolism, not elsewhere classified; R74.0 Nonspecific elevation of levels of transaminase and lactic acid dehydrogenase [LDH]; I10 Essential (primary) hypertension; F50.89 Other specified eating disorder; Z68.21 Body mass index [BMI] 21.0-21.9, adult; E03.9 Hypothyroidism, unspecified; F20.9 Schizophrenia, unspecified; F03.90 Unspecified dementia, unspecified severity, without behavioral disturbance, psychotic disturbance, mood disturbance, and anxiety; E66.9 Obesity, unspecified; R94.5 Abnormal results of liver function studies
CPT/HCPCS: 36415; 70450-TC; 71045-TC-FY; 74176-TC; 76705-TC; 80048; 80053; 80076; 81003; 82550; 82553; 82803; 82977; 83605; 83735; 83883; 83970; 84080; 84100; 84155; 84165; 84443; 84484; 85025; 85027; 85610; 85730; 86704; 86706; 86708; 87040; 87086; 87186; 87340; 87522; 93005; 93010; 93971-TC; 97116-GP; 97162-GP; 99282-25; J0131; J1644; J7030

== ENCOUNTER 2018-08-17 13:36 | Inpatient (IN) | payer OTHER | END 2018-08-31 11:25 | LOC: JER 13:36 → JERBED 17:08 → J8W 20:44 ==